=== PATIENT | female | born 1990 | race Caucasian/White ===

== ENCOUNTER → 2020-09-09 15:36 | Outpatient (BNVA) | payer OTHER, SELFPAY | PROVIDERS: PCP Internal Medicine; Referring Provider Internal Medicine; Visit Provider Physician Assistant ==

== ENCOUNTER 2020-09-15 10:27 | Outpatient (REF) | payer OTHER, SELFPAY ==
[2020-09-15 11:48] LABS: MANUAL DIFF FLAG NO
[2020-09-15 11:52] LABS: Basophils Percent Auto 0.5 % (0-2); Eosinophils Absolute Auto 0.1 X10*3/uL (0.0-0.4); Eosinophils Percent Auto 1.4 % (0-4); Hematocrit 44.4 % (37-47); Hemoglobin 14.9 g/dl (12.0-16.0); Imm Gran Abs Auto 0.01 X10*3/uL (0.00-0.03); Imm Gran Pct Auto 0.2 % (0.0-0.4); Lymphocytes Absolute Auto 1.9 X10*3/uL (1.2-4.9); Lymphocytes Percent Auto 28.2 % (20-40); Mean Corpuscular HGB Conc 33.6 g/dl (31.0-35.0); Mean Corpuscular Hemoglobin 29.9 pg (27.0-33.0); Monocytes Absolute Auto 0.4 X10*3/uL (0.1-1.2); Monocytes Percent Auto 6.2 % (2-11); Neutrophils Absolute Auto 4.2 X10*3/uL (2.0-8.3); Neutrophils Percent Auto 63.5 % (45-73); Platelet Count 196 X10*3/uL (160-400); Red Blood Count 4.99 X10*6/uL (4.20-5.50); Red Cell Distribution Width 11.9 % (11.0-16.0); White Blood Count 6.6 X10*3/uL (4.8-10.8)
[2020-09-15 12:07] LABS: Estimated Average Glucose 117 mg/dL; Hemoglobin A1c % 5.7 %
[2020-09-15 12:18] LABS: Alanine Aminotransferase 34 U/L (0-31); Albumin Level 4.1 g/dL (3.5-5.0); Alkaline Phosphatase 72 U/L (39-117); Anion Gap 13 (12-20); Aspartate Amino Transferase 24 U/L (5-31); Bilirubin Total 0.4 mg/dL (0.0-1.0); Blood Urea Nitrogen 11 mg/dL (9-16); C Reactive Protein 2.59 mg/dL (< or = 0.50); Calcium 8.9 mg/dL (8.4-10.2); Carbon Dioxide 25 mmol/L (22-29); Chloride 105 mmol/L (96-108); Cholesterol 151 mg/dL; Estimated Glomerular Filt Rate > 60; Glucose Random 101 mg/dL (60-115); HDL Cholesterol 30 mg/dL; Iron 89 mcg/dL (30-160); LDL Cholesterol Calculated 75 mg/dl; Percent Iron Saturation 29 % (15-50); Potassium 4.4 mmol/L (3.3-5.1); Sodium 139 mmol/L (135-145); Total Iron Binding Capacity 306 mcg/dL (228-428); Total Protein 6.8 g/dL (6.5-8.0); Triglycerides 230 mg/dL; Unsaturated Iron Binding 217 ug/dL
[2020-09-15 12:32] LABS: Ferritin 205 ng/mL (10-122); TSH reflex Free T4 1.33 uIU/mL (0.32-4.0); Vitamin D 25-OH Total 32.6 ng/mL (>30)
[2020-09-15 12:54] LABS: Folate 17.3 ng/mL (> or = 4.0); Vitamin B12 541 pg/mL (200-900)
[2020-09-16 21:27] LABS: Insulin Level Total 13.5 uIU/mL
[2020-09-18 12:01] LABS: Calcium (PTHI) 8.9 mg/dL (8.6-10.2); PTHI 66 pg/mL (14-64)
[2020-09-19 10:22] LABS: Vitamin B1 <6 nmol/L (8-30)
[2020-09-21 05:02] LABS: Vitamin A 35 mcg/dL (38-98)
[2020-09-21 15:36] LABS: Zinc 66 mcg/dL (60-130)
== END 2020-09-15 10:28 | disposition home or self-care (01) ==
LOC: HO.LAB 10:27
PROVIDERS: PCP Internal Medicine; Visit Provider Physician Assistant
DX: E66.01 Morbid (severe) obesity due to excess calories (principal)
CPT/HCPCS: 36415; 80053; 80061; 82306; 82607; 82728; 82746; 83036; 83525; 83540; 83970; 84425; 84443; 84590; 84630; 85025; 86140

== ENCOUNTER → 2020-10-07 08:24 | Outpatient (BNVA) | payer OTHER, SELFPAY | PROVIDERS: PCP Internal Medicine; Visit Provider Dietitian, Registered | DX: E66.01 Morbid (severe) obesity due to excess calories (principal); Z68.42 Body mass index [BMI] 45.0-49.9, adult | CPT/HCPCS: 97802 ==

== ENCOUNTER → 2020-10-13 14:28 | Outpatient (REF) | payer OTHER, SELFPAY ==
--- NOTE | 2020-10-13 15:01 | ECG_ITS ---
Test Reason : MORBID OBESITY Blood Pressure : / mmHG Vent. Rate : 084 BPM Atrial Rate : 084 BPM P-R Int : 138 ms QRS Dur : 086 ms QT Int : 374 ms P-R-T Axes : 040 008 022 degrees QTc Int : 441 ms Normal sinus rhythm Normal ECG No previous ECGs available Referred By: Regina Easton Electronically Signed By:MARY DEL REAL
[2020-10-15 14:01] LABS: H Pylori Breath Test NOT DETECTED (NOT DETECTED)
== END ==
LOC: HO.CARD 14:28
PROVIDERS: PCP Internal Medicine; Referring Provider Internal Medicine; Visit Provider Physician Assistant
DX: E66.01 Morbid (severe) obesity due to excess calories (principal); Z11.0 Encounter for screening for intestinal infectious diseases
CPT/HCPCS: 83013; 93005

== ENCOUNTER → 2020-10-21 08:10 | Outpatient (BNVA) | payer OTHER, SELFPAY | PROVIDERS: PCP Internal Medicine; Visit Provider Physician Assistant ==

== ENCOUNTER → 2020-11-09 08:00 | Outpatient (BNVA) | payer OTHER, SELFPAY | PROVIDERS: PCP Internal Medicine; Visit Provider Surgery ==

== ENCOUNTER 2020-11-10 09:32 | Outpatient (REF) | payer OTHER, SELFPAY ==
--- NOTE | ~2020-11-10 | FL_ITS ---
EXAMINATION: XR GI SERIES CLINICAL INFORMATION: Morbid/severe obesity due to excess calories. COMPARISON: None. TECHNIQUE: Routine upper GI air-contrast study was performed in upright and lying positions. FINDINGS: Following oral administration of thick barium and effervescent granules, there is normal propagation of bolus from the oral cavity through the pharynx and esophagus and into the stomach without any evidence of obstruction, narrowing or stricture. On placing patient supine and prone lying, the course, caliber and peristalsis of the stomach and the small bowel are normal. Mild gastroesophageal reflux seen without hiatal hernia. FLUOROSCOPY TIME: 1.8 minutes. DOSE AREA PRODUCT: 59.453 uGy-m2 (microgray-meter squared). FL/FL upper GI series IMPRESSION: Mild gastroesophageal reflux without hiatal hernia.
--- NOTE | ~2020-11-10 | XR_ITS ---
EXAMINATION: XR CHEST CLINICAL INFORMATION: Morbid/severe obesity due to excess calories. COMPARISON: None TECHNIQUE: 2 views of the chest were obtained. FINDINGS: No significant abnormality is noted involving the heart, lungs, mediastinum, bony thorax or soft tissues. XR/XR chest 2V IMPRESSION: Unremarkable chest examination.
== END 2020-11-10 09:33 | disposition home or self-care (01) ==
LOC: HO.XRAY 09:32
PROVIDERS: PCP Internal Medicine; Visit Provider Surgery
DX: Z01.818 Encounter for other preprocedural examination (principal); E66.01 Morbid (severe) obesity due to excess calories; K21.9 Gastro-esophageal reflux disease without esophagitis
CPT/HCPCS: 71046; 74240

== ENCOUNTER → 2020-12-01 09:13 | Outpatient (BNVA) | payer OTHER, SELFPAY | PROVIDERS: PCP Internal Medicine; Referring Provider Internal Medicine; Visit Provider Physician Assistant Surgical ==

== ENCOUNTER 2020-12-03 09:33 | Outpatient (REF) | payer OTHER, SELFPAY ==
--- NOTE | ~2020-12-03 | US_ITS ---
EXAMINATION: US COMPLETE ABDOMEN WITH LIVER ELASTOGRAPHY CLINICAL INFORMATION: Obesity COMPARISON: Previous CT of the abdomen and pelvis June 2016 TECHNIQUE: Real-time imaging of the abdominal viscera. Noninvasive ultrasound liver fibrosis assessment is performed using Jumana ElastPQ point quantification shear wave elastography (pSWE) with a C5-2 MHz transducer. Multiple elastography samples are obtained. FINDINGS: PANCREAS: Not well visualized due to bowel gas ABDOMINAL AORTA: Not well visualized due to bowel gas. INFERIOR VENA CAVA: Visualized portions are normal. LIVER: Liver echotexture is increased. The liver is normal in size and contour. No focal lesion or intrahepatic biliary duct dilatation. The right lobe measures 17 cm in length. The left lobe measures 12 cm in length. Portal flow is normal/hepatopedal Shear wave liver elastography median stiffness is 1.3 m/s (reference: normal median stiffness is 1.3 m/s or less). IQR/median stiffness to assess sampling precision is 0.05 (reference: good quality data set is IQR/median stiffness of 0.15 or less). GALLBLADDER: The gallbladder is not well visualized. There is a wall echo shadow complex seen suggestive of a contracted gallbladder and gallstones. This is similar to June 2016 CT scan. COMMON BILE DUCT: Not well seen. RIGHT KIDNEY: Normal. No hydronephrosis. No renal calculi or focal parenchymal lesions. The kidney measures 11.8 cm in maximum dimension. LEFT KIDNEY: There is a 3 x 6 mm stone in the upper pole.. No hydronephrosis. The kidney measures 11.7 cm in maximum dimension. SPLEEN: The spleen is slightly enlarged. The spleen measures 13.6 cm in maximum dimension. FREE FLUID: None. US/US abdomen comp w elastography IMPRESSION: 1. Impression: Slightly echogenic liver probably representing fatty infiltration. Slightly enlarged spleen. Pancreas, gallbladder and common bile duct not well visualized. Wall echo shadow complex suggestive of contracted gallbladder and gallstones. Left renal stone. 2. Liver elastography: Adequate liver sampling. Normal liver stiffness. REFERENCE: Society of Radiologists in Ultrasound Liver Stiffness Thresholds (2020): LIVER STIFFNESS THRESHOLDS: *Liver Stiffness equal or less than 1.3 m/s: High probability of being normal. *Liver Stiffness less than 1.7 m/s: In the absence of other known clinical signs, rules out compensated advanced chronic liver disease. *Liver Stiffness 1.7-2.1 m/s: Suggestive of compensated advanced chronic liver disease but need further test for confirmation. *Liver Stiffness over 2.1 m/s: Rules in compensated advanced chronic liver disease. *Liver Stiffness over 2.4 m/s: Suggestive of clinically significant portal hypertension. QUALITY OF DATA SET: *IQR/Median value equal or less than 0.15 implies a quality data set. *IQR/Median value over 0.15 implies a poor quality data set. SIGNIFICANT CHANGE FROM PRIOR EXAM: Significant change if liver stiffness measurement is 10% or greater from prior exam. OTHER CONSIDERATIONS: The stage of liver fibrosis may be overestimated in the setting of acute hepatitis, liver inflammation, elevated liver function tests, hepatic vascular congestion, obstructive cholestasis, non-fasting state, and infiltrative diseases such as amyloidosis and lymphoma. In some patients with NAFLD, the liver stiffness thresholds for compensated advanced chronic liver disease may be lower. In causes other than viral hepatitis and NAFLD, liver stiffness thresholds are not well established.
== END 2020-12-03 09:34 | disposition home or self-care (01) ==
LOC: HO.US 09:33
PROVIDERS: Absent Provider Surgery; PCP Internal Medicine; Visit Provider Physician Assistant
DX: E66.01 Morbid (severe) obesity due to excess calories (principal)
CPT/HCPCS: 76705; 76981

== ENCOUNTER → 2020-12-04 08:17 | Outpatient (BNVA) | payer OTHER, SELFPAY | PROVIDERS: PCP Internal Medicine; Visit Provider Surgery ==

== ENCOUNTER 2020-12-08 14:45 | Inpatient (IN) | payer MEDICAID, SELFPAY ==
[2020-12-03 10:59] LABS: MANUAL DIFF FLAG NO
[2020-12-03 11:25] LABS: Basophils Percent Auto 0.3 % (0-2); Eosinophils Absolute Auto 0.1 X10*3/uL (0.0-0.4); Eosinophils Percent Auto 1.1 % (0-4); Hematocrit 44.6 % (37-47); Imm Gran Abs Auto 0.01 X10*3/uL (0.00-0.03); Imm Gran Pct Auto 0.2 % (0.0-0.4); Lymphocytes Absolute Auto 1.8 X10*3/uL (1.2-4.9); Lymphocytes Percent Auto 27.4 % (20-40); Mean Corpuscular HGB Conc 33.6 g/dl (31.0-35.0); Mean Corpuscular Hemoglobin 30.3 pg (27.0-33.0); Mean Corpuscular Volume 90.1 fL (80-98); Mean Platelet Volume 12.7 fL (9.4-12.3); Monocytes Absolute Auto 0.3 X10*3/uL (0.1-1.2); Monocytes Percent Auto 5.1 % (2-11); Neutrophils Absolute Auto 4.3 X10*3/uL (2.0-8.3); Neutrophils Percent Auto 65.9 % (45-73); Platelet Count 195 X10*3/uL (160-400); Red Blood Count 4.95 X10*6/uL (4.20-5.50); White Blood Count 6.5 X10*3/uL (4.8-10.8)
[2020-12-03 11:29] LABS: INTERNATIONAL NORM RATIO 1.1 (0.9-1.1); Prothrombin Time 12.3 SEC (9.9-13.0)
[2020-12-03 11:36] LABS: Estimated Average Glucose 103 mg/dL; Hemoglobin A1c % 5.2 %
[2020-12-03 11:43] VITALS: BMI 42.8
[2020-12-03 12:07] LABS: Insulin 10 uU/mL (2-29); TSH reflex Free T4 1.18 uIU/mL (0.32-4.0)
[2020-12-03 12:12] LABS: Alanine Aminotransferase 20 U/L (0-31); Alkaline Phosphatase 78 U/L (39-117); Anion Gap 12 (12-20); Aspartate Amino Transferase 15 U/L (5-31); Bilirubin Total 0.4 mg/dL (0.0-1.0); Blood Urea Nitrogen 11 mg/dL (9-16); C Reactive Protein 2.73 mg/dL (< or = 0.50); Calcium 8.9 mg/dL (8.4-10.2); Carbon Dioxide 26 mmol/L (22-29); Chloride 106 mmol/L (96-108); Cholesterol 119 mg/dL; Creatinine Clr Calc Pharmacy 138.5; Estimated Glomerular Filt Rate > 60; Glucose Random 92 mg/dL (60-115); HDL Cholesterol 26 mg/dL; LDL Cholesterol Calculated 63 mg/dl; Potassium 4.6 mmol/L (3.3-5.1); Sodium 139 mmol/L (135-145); Total Protein 6.5 g/dL (6.5-8.0); Triglycerides 153 mg/dL
--- NOTE | 2020-12-07 09:27 | HO.ANESPROP2 ---
Documented by User: Susie Moreno NP 12/07/20 09:29 HPI - Anesthesia Eval Consult details Narrative: 30yo F for Gastrectomy Sleeve, EGD, Poss Diaphragmatic Hernia, Poss Ventral Hernia, Poss open PMFSH Active Problems Active Problems: All Active Problems (Updated 12/03/20 @ 11:43 by Suyapa Ambriz RN) Morbid obesity (Acute) Adjustment disorder, unspecified (Acute) Vitamin A deficiency (Acute) Vitamin B1 deficiency (Acute) Past Medical History Medical History (Updated 12/03/20 @ 11:43 by Suyapa Ambriz RN) Arthritis COVID-19 vaccine series completed Encounter for Essure implantation GERD (gastroesophageal reflux disease) History of hypertension Hx of hidradenitis suppurativa Renal calculi Family History Family History (Updated 09/09/20 @ 16:06 by Elba Ibarra) Mother Breast cancer Father Deaf Knee problem Sister No problems noted. Sister Allergies Brother Muscular dystrophies Brother No problems noted. Surgical History Surgical History (Updated 12/03/20 @ 11:43 by Suyapa Ambriz RN) History of ankle fusion History of repair of ACL Hx of cystoscopy Social History Social History (Updated 09/09/20 @ 16:06 by Elba Ibarra) Are you a primary pediatric care coordinator to a significant other at home: No Do you presently have visiting nurse or other home services: No Alcohol intake: current Alcohol intake frequency: does not drink Patient Tobacco Use Status: Current everyday Tobacco user Tobacco use type: Cigarette Cigarettes Per Day: 8 Smoked in Last 30 Days: Yes Patient Given Instructions on How to Stop Smoking: Yes (patient currently taking bupropion for smoking cessation) Date Education Initiated: 12/03/20 Use of substances other than those prescribed or required for medical reasons: Yes Substance Use Type Other:: advised to hold pre-op Substance Use Frequency: Occasionally Have you been hit, kicked, punched, or otherwise hurt by someone within the past year? If so, by whom?: No Are you DNR?: No Advance Directives: No Advance Directives Information Provided: Yes (informational brochure mailed) Advance Directives on File: No Recently lost weight without trying: No Eating poorly because of decreased appetite: No Nutrition Risks: No Nutritional Risk Patient : No FDLMP: 11/23/20 : No Poor oral hygiene: No Meds Allergies Allergy/AdvReac Type Severity Reaction Status Date / Time No Known Allergies Allergy Verified 12/04/20 09:01 [No Known Allergies*] Home Medications Medication Instructions Recorded Confirmed Last Taken Type cholecalciferol (vitamin D3) 25 25 mcg PO DAILY 09/09/20 12/03/20 Unknown History mcg (1,000 unit) capsule pguunapv-vve-itrg-FA-Ca carb-vit K 1 tab PO DAILY 09/09/20 12/03/20 Unknown History 18 mg iron-400 mcg-500 mg tablet (Women's Multivitamin) bupropion HCl 100 mg tablet 1 tab PO BID 12/03/20 12/03/20 Unknown History Exam Exam Date and Time: December 07, 2020 09 Height,Weight and Vital Signs: Height 5 ft 3 in Weight 109.769 kg Pertinent Lab Results Pertinent Lab Results: Laboratory Tests 12/03/20 12/03/20 12/03/20 10:50 10:55 10:55 WBC 6.5 RBC 4.95 Hgb 15.0 Hct 44.6 MCV 90.1 MCH 30.3 MCHC 33.6 RDW 12.0 Plt Count 195 MPV 12.7 H Immature Gran % (Auto) 0.2 Neut % (Auto) 65.9 Lymph % (Auto) 27.4 Taylor % (Auto) 5.1 Eos % (Auto) 1.1 Baso % (Auto) 0.3 Lymph # (Auto) 1.8 Taylor # (Auto) 0.3 Eos # (Auto) 0.1 Baso # (Auto) 0.0 Abs Immat Gran (auto) 0.01 Absolute Neuts (auto) 4.3 Absolute Nucleated RBC 0.000 Nucleated RBC % (auto) 0.0 PT 12.3 INR 1.1 APTT 42.0 H Sodium Potassium Chloride Carbon Dioxide Anion Gap BUN Creatinine Estim Creat Clear Calc Estimated GFR Random Glucose Estimat Average Glucose Hemoglobin A1c % Insulin Level Calcium Total Bilirubin AST ALT Alkaline Phosphatase C-Reactive Protein Total Protein Albumin Triglycerides Cholesterol LDL Cholesterol, Calc HDL Cholesterol TSH Blood Type O Positive Antibody Screen NEGATIVE 12/03/20 12/03/20 10:55 10:55 WBC RBC Hgb Hct MCV MCH MCHC RDW Plt Count MPV Immature Gran % (Auto) Neut % (Auto) Lymph % (Auto) Taylor % (Auto) Eos % (Auto) Baso % (Auto) Lymph # (Auto) Taylor # (Auto) Eos # (Auto) Baso # (Auto) Abs Immat Gran (auto) Absolute Neuts (auto) Absolute Nucleated RBC Nucleated RBC % (auto) PT INR APTT Sodium 139 Potassium 4.6 Chloride 106 Carbon Dioxide 26 Anion Gap 12 BUN 11 Creatinine 0.70 Estim Creat Clear Calc 138.5 Estimated GFR > 60 Random Glucose 92 Estimat Average Glucose 103 Hemoglobin A1c % 5.2 Insulin Level 10 Calcium 8.9 Total Bilirubin 0.4 AST 15 ALT 20 Alkaline Phosphatase 78 C-Reactive Protein 2.73 H Total Protein 6.5 Albumin 4.0 Triglycerides 153 Cholesterol 119 D LDL Cholesterol, Calc 63 HDL Cholesterol 26 TSH 1.18 Blood Type Antibody Screen Narrative Narrative: EKG 10/2020 Vent. Rate : 084 BPM ? ? Atrial Rate : 084 BPM ?? P-R Int : 138 ms? QRS Dur : 086 ms ? ? QT Int : 374 ms ? ? ? P-R-T Axes : 040 008 022 degrees ?? QTc Int : 441 ms ? Normal sinus rhythm Normal ECG No previous ECGs available Assessment and Plan Assessment Anesthesia Assessment: Chart Reviewed Documented by User: Phillip Ivey MD 12/08/20 11:11 [facility] Past Medical History Medical History (Updated 12/03/20 @ 11:43 by Suyapa mAbriz RN) Arthritis COVID-19 vaccine series completed Encounter for Essure implantation GERD (gastroesophageal reflux disease) History of hypertension Hx of hidradenitis suppurativa Renal calculi Family History Family History (Updated 09/09/20 @ 16:06 by Elba Ibarra) Mother Breast cancer Father Deaf Knee problem Sister No problems noted. Sister Allergies Brother Muscular dystrophies Brother No problems noted. Family history of problems with anesthesia: No Surgical History Surgical History (Updated 12/03/20 @ 11:43 by Suyapa Ambriz RN) History of ankle fusion History of repair of ACL Hx of cystoscopy History of Problems with Anesthesia: No Social History Social History (Updated 09/09/20 @ 16:06 by Elba Ibarra) Are you a primary pediatric care coordinator to a significant other at home: No Do you presently have visiting nurse or other home services: No Alcohol intake: current Alcohol intake frequency: does not drink Patient Tobacco Use Status: Current everyday Tobacco user Tobacco use type: Cigarette Cigarettes Per Day: 8 Smoked in Last 30 Days: Yes Patient Given Instructions on How to Stop Smoking: Yes (patient currently taking bupropion for smoking cessation) Date Education Initiated: 12/03/20 Use of substances other than those prescribed or required for medical reasons: Yes Substance Use Type Other:: advised to hold pre-op Substance Use Frequency: Occasionally Have you been hit, kicked, punched, or otherwise hurt by someone within the past year? If so, by whom?: No Are you DNR?: No Advance Directives: No Advance Directives Information Provided: Yes (informational brochure mailed) Advance Directives on File: No Recently lost weight without trying: No Eating poorly because of decreased appetite: No Nutrition Risks: No Nutritional Risk Patient : No FDLMP: 11/23/20 : No Poor oral hygiene: No Meds Allergies Allergy/AdvReac Type Severity Reaction Status Date / Time No Known Allergies Allergy Verified 12/04/20 09:01 [No Known Allergies*] Home Medications Medication Instructions Recorded Confirmed Last Taken Type cholecalciferol (vitamin D3) 25 25 mcg PO DAILY 09/09/20 12/03/20 Unknown History mcg (1,000 unit) capsule klncbidn-htj-sive-FA-Ca carb-vit K 1 tab PO DAILY 09/09/20 12/03/20 Unknown History 18 mg iron-400 mcg-500 mg tablet (Women's Multivitamin) bupropion HCl 100 mg tablet 1 tab PO BID 12/03/20 12/03/20 Unknown History Exam Airway Mallampati Class: I TM Dist: >3cm Neck ROM: Full Loose/Missing/Broken Teeth: No Assessment and Plan Assessment Anesthesia Assessment: Anesthesia Plan Discussed Final Anesthetic Review Family History of Problems with Anesthesia: No History of Problems with Anesthesia: No NPO: Yes ASA Class: III Final Preanesthetic Review: No Changes in Pt Med Stat, Meds/Allgs Chart Reviewed, Consent Obtained/Reviewed and Anes Risks/Benef Reviewed Patient Risk: Intermediate Procedure Risk: Intermediate Anesthetic Plan Anesthetic Plan: GA Disposition: Standard PACU
--- NOTE | 2020-12-07 13:08 | P.HPSUR_ITS ---
Pre-Procedural Eval Section A Date of Service: 12/07/20 The patient is an INPATIENT: Yes The History & Physical has been completed within 30 days and I have reviewed it.: Yes Section B Chief Complaint: Morbid Severe Obesity Relevant Family History (Specify if Yes): Yes Relevant Social History: None Present Medications: None Medical History: No relevant PMH History of Previous Operations: No relevant previous surgery Allergies: Allergies Allergy/AdvReac Type Severity Reaction Status Date / Time No Known Allergies Allergy Verified 12/04/20 09:01 [No Known Allergies*] Review of Systems Sugical H&P ROS: Negative: Constitution, Cardiovascular, Respiratory, Neurological, Psychiatric, Hem-Onc, Allergic/Immunologic, Gastrointestinal, Genitourinary, Musculoskeletal, Integumentary, Endocrine and Eyes/Ears /Nose/Throat Exam Surgical H&P Exam: Normal: HEENT, Normal: Heart, Normal: Lungs, Normal: Extremities, Normal: Abdomen, Normal: Skin and Normal: Neurological Plan Diagnosis/Plan: Unchanged I have reviewed the history and physical and performed a pertinent physical examination on my patient. No changes have occurred unless specified.
[2020-12-08] VITALS (11 sets, daily range): BP systolic 119–158; BP diastolic 71–103; PULSE 81–101; RESP 14–25; TEMP 36.2–36.4; O2SAT 91–97
[2020-12-08 09:17] LABS: UPreg QC Valid YES; Urine Pregnancy NEGATIVE (NEGATIVE)
[2020-12-08] MEDS: Lactated Ringers 1,000 ML 999 ML IV (09:18)
[2020-12-08] MEDS: Lactated Ringers 1,000 ML 100 ML IVCONT (09:18)
[2020-12-08 09:19] LABS: COVID-19 Test Negative (Negative); IDNOW Serial# 9DD0AD1C
--- NOTE | 2020-12-08 11:38 | P.BOP_ITS ---
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 The patient met the BMI-criteria for bariatric surgery based on the BMI on initial presentation. The patient should not be penalized for achieving such weight loss because ?it is not sustainable long-term without surgical intervention and it was achieved in preparation for bariatric surgery ?under my direction and based on my published research ([email or web address] and? [email or web address] [email or web address]/article/[email or web address])[email or web address]/pdf ) ?that a 10% preoperative weight loss improves long-term weight loss after surgery and reduces perioperative complications.? Insurance carriers such as [facility] have endorsed my recommendations ?and have included in their policies criteria to include a 10% preoperative weight loss requirement. PROCEDURE: Esophago-gastroscopy, laparoscopic repair of incarcerated diaphragmatic hernia, laparoscopic lysis of adhesions, laparoscopic sleeve gastrectomy and laparoscopic gastropexy INDICATIONS: This is a 30 year-old female who was electively scheduled for laparoscopic, possibly open sleeve gastrectomy. The risks and complications of the procedure were discussed with the patient in advance, particularly the possibility of ; pulmonary embolism; staple line leak; bleeding; GERD; cardiac, pulmonary, or renal complications; as well as long-term problems such as insufficient weight loss, vitamin deficiency, strictures, or ulcers. The patient understood all the risks, and was in agreement to proceed with surgery. DESCRIPTION OF PROCEDURE: After informed consent was obtained from the patient, the patient was given preoperative antibiotics, and was transferred to the operating room. After successful induction of general anesthesia, pneumatic compressive devices were placed on both lower extremities. An upper endoscopy was performed next. The oropharynx and esophagus appeared to be within normal limits. There was no diaphragmatic hernia present, consistent with the findings of the preoperative upper GI. The stomach was entered. Then after all fluid and air were suctioned and the stomach was fully decompressed, the scope was withdrawn and secured in the mid esophagus. The patient was then prepped and draped in the usual sterile manner, and abdominal access was established at the right upper quadrant with the Mary technique. A 12 mm blunt port was inserted, and the abdomen was insufflated with CO2 to a pressure of 15 mmHg. Under direct visualization, additional ports were placed, specifically two 5 mm Versi-step ports to the left upper quadrant, and a 5 mm Versi-Step port to the right upper quadrant. 1% lidocaine plain was used to infiltrate all port sites as well as all fascia defects. Using the EndoClose suture passer device, I placed a #1 Polysorb tie across the falciform ligament in order to retract it up against the abdominal wall and prevent injury of the ligament with our instruments during the procedure. Following that, the patient was placed in a steep reverse Trendelenburg position. An additional 5 mm port was placed to the right flank for the Mediflex retractor that was used to retract the left lobe of the liver. The gastro-esophageal fat pad was opened with the ultrasonic device (Thunderbeat , Olympus) and the anterior esophagus and hiatus were exposed. The angle of His was opened with the ultrasonic device the fundus of the stomach from any diaphragmatic and splenic attachments. I then opened the gastrocolic ligament between the transverse colon and the greater curvature of the stomach with the ultrasonic device to enter the lesser sac and facilitate the ligation of the short gastric vessels. I started at a mid-point along the greater curvature and using the Thunderbeat, all short gastric vessels were divided all the way to the angle of His until the left jonathan was completely dissected at its entirety. I then divided the gastro-colic ligament distally to a distance of about 3-4 cm proximal to the esophagus. There were extensive congenital adhesions between the pancreas and posterior gastric wall. Those were lysed completely with the ultrasonic device. Adhesiolysis took approximately 45 min to complete. Total operative time was 2 hours and 10 minutes. The stomach was then divided transversely with one Endo TOMAS-45 purple, two TOMAS- 45 orange and four TOMAS-60 articulating orange loads using the AEON stapler and loads. Every effort was made that the gastric sleeve had a tubular shape and an even caliber throughout. Once the sleeve resection was completed, the staple line of the gastric sleeve was reinforced with Hemoclips. The resected stomach was retrieved without difficulty from the Mary port. A gastropexy was then performed in order to prevent postoperative GERD and partial gastric volvulus. Several interrupted 2.0 Surgidac sutures were placed between the sleeve's staple line and the previously divided greater omentum and gastro-colic ligament using the Endo-Stitch device. ?An upper endoscopy was performed. There was no narrowing at the GE junction. The scope was easily advanced all the way to the pylorus which was clearly visualized. There was no narrowing anywhere and the sleeve's caliber was even throughout. The sleeve's staple line was inspected and there was no evidence of ischemia, bleeding or dehiscence. At that point the gastroscope was withdrawn from the patient?s mouth while we were decompressing the bowel and the stomach f rom any remaining air. I looked into the lesser sac to see how the sleeve was situating and it was situating well. There was no bleeding from the staple line, spleen, or short gastric vessels. The Mediflex retractor was removed, and the undersurface of the liver was inspected and there was no bleeding. The patient was placed in supine position. I closed the fascial defect of the 12 mm port site with a figure of eight #1 Polysorb suture. Then 100 cc 0.25 % Marcaine plain with 10 mg of Dexamethasone were used to infiltrate the fascial closure as well as all skin incisions. At this point, the abdomen was deflated, all ports were removed under direct vision, and no bleeding was noted from any of the port sites. The skin incisions were irrigated with saline and were closed with 4-0 absorbable monofilament sutures. Steri-Strips and OpSites were used to cover all incisions. The patient was extubated and was transferred in stable condition to the recovery room for further care. I was present and performed all ho parts of the procedure. Mr. Davis was the general office assistant and Cordelia Rustam was the second minister assistant. There were no residents to assist with this case. Micheal Lama MD, PhD, FACS Surgeon: Jarocho Lama MD Anesthesia: GETA, local and other (TAP block) Was an Sand Plant Attendant used for this Procedure?: No Sand Plant Attendant: Partha Davis Estimated blood loss (mL): 10 IV fluids (mL): 3,000 Urine output (mL): 0 (No Harden to record) Pathology: other (Stomach) Condition: stable Disposition: PACU
--- NOTE | 2020-12-08 11:43 | PM.PNGS ---
Subjective Subjective Date of Service: 12/09/20 Interval history: Patient has mild incisional pain, but was able to ambulate and use the incentive spirometer. She is tolerating phase 1 bariatric diet Physical Exam Vital Signs: Vital Signs: Last Vital Signs Temp 97.1 F 12/08/20 09:08 Pulse 83 12/08/20 09:08 Resp 16 12/08/20 09:08 BP 119/71 12/08/20 09:08 Pulse Ox 97 12/08/20 09:08 Body Mass Index 42.8 GI: Inspection: Yes normal to inspection and Yes incision (clean, dry and intact) Extrem: Right lower extremity: normal to inspection (no calf tenderness) Left lower extremity: normal to inspection (no calf tenderness) Procedures Date of Service Date of Service: 12/09/20 Progress Note: A&P Assessment and plan (1) Morbid obesity: Status: Acute Assessment and Plan: s/p laparoscopic sleeve gastrectomy, lysis of adhesions repair of diaphragmatic hernia, and gastropexy Doing well Check am labs. If OK, will discharge home? (2) Hypertension: Status: Acute (3) GERD (gastroesophageal reflux disease): Status: Acute (4) Arthritis: Status: Acute (5) Renal calculi: Status: Acute (6) Cholelithiasis: Status: Acute (7) S/P laparoscopic sleeve gastrectomy: Status: Acute Fall Risk Details Current Medications: Current Medications Albuterol Sulfate (Albuterol Sulfate (0.083%) 2.5 Mg/3 Ml Vial.Neb) 2.5 mg INHALE ONCE PRN PRN Reason: Shortness of Breath/Wheezing Hydromorphone HCl (Hydromorphone Hcl 0.5 Mg/0.5 Ml Syringe) 0.5 mg IVPUSH Q5M PRN; Protocol PRN Reason: Pain, Severe (Pain Scale 7-10) Lactated Ringer's (Lr) 1,000 mls @ 100 mls/hr IVCONT .Q10H VINOD Last Admin: 12/08/20 09:18 Dose: 100 mls/hr Documented by: Promethazine HCl 12.5 mg/ (Sodium Chloride) 50.5 mls @ 202 mls/hr IV ONCE PRN PRN Reason: Nausea and Vomiting Ondansetron HCl (Ondansetron Hcl 4 Mg/2 Ml Vial) 4 mg IVPUSH ONCE PRN PRN Reason: Nausea and Vomiting Time Spent With Patient Time: Total time spent is greater than 50% in coordination of care (as documented) at patient's floor/unit and/or counseling patient: Time with patient: less than 15 minutes Quality Stroke Does the patient have a stroke diagnosis?: No VTE Prior VTE?: No VTE Risk Level:: Surgical - moderate VTE Device Contraindication: N/A - Device Ordered VTE Drug Contraindication: Treatment Not Indicated
--- NOTE | 2020-12-08 14:54 | P.DS_ITS ---
DS: Providers Provider Date of Service: 12/09/20 Primary care physician: Jenny Lopez MD DS: Diagnosis Discharge Diagnosis (1) Morbid obesity: Status: Acute (2) Hypertension: Status: Acute (3) GERD (gastroesophageal reflux disease): Status: Acute (4) Arthritis: Status: Acute (5) Renal calculi: Status: Acute (6) Cholelithiasis: Status: Acute DS: Summary Hospital Course Hospital Course: ADMITTING DIAGNOSIS: morbid obesity, GERD, HTN, Hidradenitis, asthma ? DISCHARGE DIAGNOSIS: same, s/p laparoscopic sleeve gastrectomy ? PAST SURGICAL HISTORY: R ankle fusion, L ACL repair ? PROCEDURE: upper endoscopy, laparoscopic sleeve gastrectomy ? DISCHARGE SUMMARY: ? History of Present Illness: ? The patient is a?30 year-old woman with a BMI of?51.2 kg/m2 and associated co- morbidities as described above. The patient had extensive work-up,lost?46.6 lbs preoperatively and was electively scheduled for laparoscopic, possible open sleeve gastrectomy and gastropexy. Risks and complications of the surgery were discussed with the patient in advance, particularly the possibility of , pulmonary embolism, anastomotic leak, bleeding, bowel injury, GERD, cardiac, renal or pulmonary complications. The patient understood all the risks and was in agreement with the surgical plan. ? Hospital Course: ? The patient underwent an uneventful laparoscopic sleeve gastrectomy with gastropexy on the day of admission. Postoperatively, the patient was transferred to the surgical floor. The patient received IV Acetaminophen and IV dilaudid for pain control. Patient was started on bariatric phase 1 diet POD #0. On postoperative day one, the patient was feeling well without nausea, vomiting, f fredy, or tachycardia. The patient had some mild incisional pain and the abdomen was soft. ? On the morning of postoperative day one, the patient was continued on 1 ounce of water or ice every half hour. During the day, the patient did fairly well, having some incisional pain, but able to ambulate adequately and to tolerate liquids well. ? Since the patient is doing well, we decided that the patient was ready to be discharged. The patient was given instructions to follow-up with me next week and to call my office for any fever over 101, persistent abdominal pain, nausea, vomiting, GERD, symptoms of DVT such as calf tenderness, or leg swelling, or pulmonary embolism such as chest pain or shortness of breath. The patient was also instructed to drink 40-60 ounces of liquids per day using the 1-ounce cups. The patient had been given prescriptions for Tylenol for pain, Zofran prn for nausea, and pantoprazole and carafate previously. The patient was encouraged to ambulate and use the incentive spirometer. The patient was allowed to shower, but no baths, and encouraged to stay active at home. All of these instructions were given to the patient personally. All questions were answered and the patient understood all instructions, the instructions were also given to the patient in print. Time spent discussing smoking cessation with patient: 3 to 10 minutes Time Spent with Patient Time attestation: Total time spent providing and/or coordinating discharge services: Discharge coordination time: Less than 30 minutes Quality: Stroke Does the patient have a stroke diagnosis?: No Physical Exam Vital Signs: Vital Signs: Last Vital Signs Temp 97.1 F 12/08/20 09:08 Pulse 83 12/08/20 09:08 Resp 16 12/08/20 09:08 BP 119/71 12/08/20 09:08 Pulse Ox 97 12/08/20 09:08 Body Mass Index 42.8 DS: Data Data Completed and Pending Pending studies at discharge: Pending at discharge 12/08/20 13:52 Surgical [PTH] Routine Labs on day of discharge: Laboratory Results - last 24 hr 12/08/20 12/08/20 08:44 08:44 Urine Test NEGATIVE COVID-19 ([facility]) Negative COVID-19 Clin Com See Note Discharge Plan Discharge Patient Disposition: Home, Self-Care Discharge Diagnosis: Morbid obesity Referrals: Jenny Lopez MD [Primary Care Provider] - 1 Week Discharge Medications: Continued pantoprazole 40 mg tablet,delayed release (DR/EC) 40 mg PO DAILY Qty: 30 RF: 2 sucralfate 100 mg/mL suspension 10 ml PO BID Qty: 400 RF: 2 ondansetron HCl [Zofran] 4 mg tablet 4 mg PO Q12H Qty: 20 RF: 0 Changed bupropion HCl 100 mg tablet 1 tab PO DAILY Qty: 0 RF: 0 Discontinued polyethylene glycol 3350 [Miralax] 17 gram powder in packet 17 g PO DAILY Qty: 14 RF: 0 cholecalciferol (vitamin D3) 25 mcg (1,000 unit) capsule 25 mcg PO DAILY RF: 0 Women's Multivitamin 18 mg iron-400 mcg-500 mg tablet 1 tab PO DAILY RF: 0 vitamin A palmitate 10,000 unit capsule 10,000 unit PO .COMPLEX Qty: 30 RF: 2 thiamine HCl (vitamin B1) 100 mg tablet 100 mg PO DAILY Qty: 30 RF: 2 Discharge Orders: Discharge Order (Routine); Ordered 12/09/20 Ordered By: Jarocho Lama Diet: other Activity on Discharge: As tolerated Activity Restrictions/Additional Instructions: No tub baths, sex or returning to work until discussed at first post op appointment. No exercise, alcohol, tobacco or illegal drug use. Continue to use incentive spirometer hourly while awake. Walk in home for 5- 10 minutes every 2 hours during the first week. Follow all instructions in the bariatric handbook and call with any questions.Discharge Instructions 1. Please call your doctor or come back to the emergency room should any new symptoms arise. 2. You will receive a courtesy call from [facility] 24-48 hours after discharge. 3. Activity: abstain from alcohol, practice limited stair climbing, no bending, no driving, no exercise, no illicit substances, no lifting, no sex, no tub bath, no work. 4. Diet: continue as discussed with Dr. Lama. 5. Dressing Change/Wound Care: Your incision is covered by clear bandages and guaze underneath. If the area is tender, you may apply an ice pack for short intervals (no more than 20 minutes on, followed by at least 20 minutes off). Do not apply heat. Do not use creams, lotions, or topical antibiotics unless instructed to do so by your surgeon. These can cause infection or allergic reaction. 6. Call your doctor if: - Your temperature exceeds 101.5 F - You experience excessive pain or swelling - You have an unexpected reaction to medication - You have excessive bleeding - You experience continued vomiting/nausea - Your incision begins to separate - Your incision shows signs of infection such as increased redness, swelling, excessive pain, heat, or drainage (light blood or clear fluid is normal) 7. General instructions: No lifting greater than 5 lbs for the next 4 weeks. [address] driving within 24 hours of taking narcotic pain medications. If you do not move your bowels in the next 2 days, please take milk of magnesia over the counter. Please follow the post op diet and do not advance your diet until you are seen in the office in about 2 weeks. Please walk around your home every hour or two to prevent blood clots from forming in your legs. You do not need to wake from sleeping to walk. Please sleep in a bed or couch to prevent kinking at the hips and knees. Please take your incentive spirometer (your lung director distribution) home with you and use it for the next few days to prevent pneumonias. You may shower, no hot tubs, baths or swimming pools. Please call the office with any questions or concerns such as increasing abdominal pain, fever, chills, shortness of breath, chest pain, leg pain or swelling, or redness or drainage from your incisions. Please stay on stage 3 diet which includes sugar free clear liquids such as propel water and crystal light. Avoid all carbonation. Please drink 3 protein shakes with at least 25-30 grams of protein daily or 3 of the Celebrate 4:1 shakes which can be purchased in our office. The Celebrate shakes have all of the bariatric vitamins you need if you consume these shakes. If you are drinking other protein shakes, you will need to purchase the Celebrate multivitamins and calcium that we provide in the office (they will provide all the vitamins you need). Please make sure you are consuming at least 40-60 ounces of water in addition to your 3 protein shakes daily. Do not hesitate to contact the office with any questions at . The patient's medical history has been reviewed and they are considered low risk for post op DVT and therefore DVT prophylaxis is not considered necessary. Travel after surgery was reviewed. The patient has not disclosed any travel plans during the first 30 days after surgery and they have been advised that wit hin the first 30 days after surgery any bus, plane, train or car travel over 2 hours in duration is contraindicated due to the possibility of developing blood clots from immobility. Any travel, needs to include periods of ambulation of 10 minutes in duration every 2 hours.? The patient was instructed to discuss any plans for travel during this period with their bariatric surgeon. Care Plan Goals: weight loss Health Concerns: obesity Plan of Treatment: No tub baths, sex or returning to work until discussed at first post op appointment. No exercise, alcohol, tobacco or illegal drug use. Continue to use incentive spirometer hourly while awake. Walk in home for 5- 10 minutes every 2 hours during the first week. Follow all instructions in the bariatric handbook and call with any questions.Discharge Instructions 1. Please call your doctor or come back to the emergency room should any new symptoms arise. 2. You will receive a courtesy call from [facility] 24-48 hours after discharge. 3. Activity: abstain from alcohol, practice limited stair climbing, no bending, no driving, no exercise, no illicit substances, no lifting, no sex, no tub bath, no work. 4. Diet: continue as discussed with Dr. Lama. 5. Dressing Change/Wound Care: Your incision is covered by clear bandages and guaze underneath. If the area is tender, you may apply an ice pack for short intervals (no more than 20 minutes on, followed by at least 20 minutes off). Do not apply heat. Do not use creams, lotions, or topical antibiotics unless instructed to do so by your surgeon. These can cause infection or allergic reaction. 6. Call your doctor if: - Your temperature exceeds 101.5 F - You experience excessive pain or swelling - You have an unexpected reaction to medication - You have excessive bleeding - You experience continued vomiting/nausea - Your incision begins to separate - Your incision shows signs of infection such as increased redness, swelling, excessive pain, heat, or drainage (light blood or clear fluid is normal) 7. General instructions: No lifting greater than 5 lbs for the next 4 weeks. No driving within 24 hours of taking narcotic pain medications. If you do not move your bowels in the next 2 days, please take milk of magnesia over the counter. Please follow the post op diet and do not advance your diet until you are seen in the office in about 2 weeks. Please walk around your home every hour or two to prevent blood clots from forming in your legs. You do not need to wake from sleeping to walk. Please sleep in a bed or couch to prevent kinking at the hips and knees. Please take your incentive spirometer (your lung director distribution) home with you and use it for the next few days to prevent pneumonias. You may shower, no hot tubs, baths or swimming pools. Please call the office with any questions or concerns such as increasing abdominal pain, fever, chills, shortness of breath, chest pain, leg pain or swelling, or redness or drainage from your incisions. Please stay on stage 3 diet which includes sugar free clear liquids such as ice pops and jello and broth and crystal light. Avoid all carbonation. Please drink 3 protein shakes with at least 25-30 grams of protein daily or 3 of the Celebrate 4:1 shakes which can be purchased in our office. The Celebrate shakes have all of the bariatric vitamins you need if you consume these shakes. If you are drinking other protein shakes, you will need to purchase the Celebrate multivitamins and calcium that we provide in the office (they will provide all the vitamins you need). Please make sure you are consuming at least 40-60 ounces of water in addition to your 3 protein shakes daily. Do not hesitate to contact the office with any questions at . The patient's medical history has been reviewed and they are considered low risk for post op DVT and therefore DVT prophylaxis is not considered necessary. Travel after surgery was reviewed. The patient has not disclosed any travel plans during the first 30 days after surgery and they have been advised that within the first 30 days after surgery any bus, plane, train or car travel over 2 hours in duration is contraindicated due to the possibility of developing blood clots from immobility. Any travel, needs to include periods of ambulation of 10 minutes in duration every 2 hours.? The patient was instructed to discuss any plans for travel during this period with their bariatric surgeon. Assessment: stable s/p laparoscopic sleeve gastrectomy
[2020-12-08 15:58] LABS: Hematocrit 43.2 % (37.0-47.0); Hemoglobin 14.5 g/dl (12.0-16.0)
[2020-12-08 16:21] LABS: Anion Gap 11 (12-20); Blood Urea Nitrogen 6 mg/dL (9-16); Calcium 8.2 mg/dL (8.4-10.2); Carbon Dioxide 24 mmol/L (22-29); Chloride 107 mmol/L (96-108); Creatinine Clr Calc Pharmacy 136.5; Estimated Glomerular Filt Rate > 60; Glucose Random 139 mg/dL (60-115); Potassium 4.2 mmol/L (3.3-5.1); Sodium 138 mmol/L (135-145)
[2020-12-08] MEDS: Lactated Ringers 1,000 ML 125 ML IVCONT ×2 (16:32→22:57)
[2020-12-08] MEDS: ondansetron HCL 4 MG/2 ML VIAL IVPUSH (17:17)
[2020-12-08] MEDS: ceFAZolin Sodium/Dextrose,Iso 2 GM/50 ML PIGGYBACK IV (17:17)
[2020-12-08] MEDS: 0.9 % Sodium Chloride Flush 3 ML SYRINGE IVFLUSH (19:13)
[2020-12-08] MEDS: Metoclopramide HCl 10 MG/2 ML VIAL IVPUSH (19:13)
[2020-12-08] MEDS: Famotidine/PF 20 MG/2 ML VIAL IVPUSH (20:58)
[2020-12-09] VITALS: BP 132/81; PULSE 70; RESP 18; TEMP 36.8; O2SAT 96
[2020-12-09] MEDS: ondansetron HCL 4 MG/2 ML VIAL IVPUSH ×2 (00:41→07:06)
[2020-12-09 03:19] VITALS: BP 140/79; PULSE 73; RESP 18; TEMP 36.3; O2SAT 92
[2020-12-09] MEDS: Lactated Ringers 1,000 ML 125 ML IVCONT (05:55)
[2020-12-09 06:19] LABS: MANUAL DIFF FLAG NO
[2020-12-09 06:27] LABS: Basophils Percent Auto 0.1 % (0-2); Hematocrit 40.5 % (37.0-47.0); Hemoglobin 13.3 g/dl (12.0-16.0); Imm Gran Abs Auto 0.05 X10*3/uL (0.00-0.03); Imm Gran Pct Auto 0.5 % (0.0-0.4); Lymphocytes Absolute Auto 1.1 X10*3/uL (1.2-4.9); Lymphocytes Percent Auto 9.7 % (20-40); Mean Corpuscular HGB Conc 32.8 g/dl (31.0-35.0); Mean Corpuscular Hemoglobin 29.8 pg (27.0-33.0); Mean Corpuscular Volume 90.6 fL (80.0-98.0); Mean Platelet Volume 12.8 fL (9.4-12.3); Monocytes Absolute Auto 0.5 X10*3/uL (0.1-1.2); Monocytes Percent Auto 4.1 % (2-11); Neutrophils Absolute Auto 9.45 x10*3/uL (2.0-8.3); Neutrophils Percent Auto 85.6 % (45-73); Platelet Count 187 X10*3/uL (160-400); Red Blood Count 4.47 X10*6/uL (4.20-5.50); Red Cell Distribution Width 11.9 % (11.0-16.0)
[2020-12-09 06:43] LABS: Anion Gap 11 (12-20); Blood Urea Nitrogen 5 mg/dL (9-16); Calcium 8.1 mg/dL (8.4-10.2); Carbon Dioxide 23 mmol/L (22-29); Chloride 108 mmol/L (96-108); Creatinine Clr Calc Pharmacy 167.1; Estimated Glomerular Filt Rate > 60; Glucose Random 101 mg/dL (60-115); Potassium 3.9 mmol/L (3.3-5.1); Sodium 138 mmol/L (135-145)
[2020-12-09] MEDS: Famotidine/PF 20 MG/2 ML VIAL IVPUSH (07:07)
[2020-12-09 08:00] VITALS: BP 133/70; PULSE 70; RESP 17; TEMP 36.3; O2SAT 93
--- NOTE | 2020-12-09 09:04 | MHC.CM.PN ---
[id number] s/p gastric sleeve she lives w family. She is independent with all functional activity. DP home with family assistance and transportation.
--- NOTE | 2020-12-09 12:58 | HO.POSTANES ---
Post Anesthesia Evaluation Post Anesthesia Evaluation Vital Signs: Vital Signs Temp Pulse Resp BP Pulse Ox 12/09/20 08:00 97.3 F 70 17 133/70 93 12/09/20 03:19 97.3 F 73 18 140/79 H 92 Anesthesia: General Endotracheal-GETA Mental Status: Awake Nausea/Vomiting: None Hydration: Adequate Anesthesia-Related Issues: No Anes. Related Issues
== END 2020-12-09 09:58 | disposition home or self-care (01) | DRG 403 ==
LOC: HO.SSS 14:54 → HO.S3 15:58
PROVIDERS: Nurse Practitioner; Surgery; Admitting Provider Physician Assistant Surgical; PCP Internal Medicine; Visit Provider Physician Assistant Surgical
PROC: 0DB64Z3 Excision of Stomach, Percutaneous Endoscopic Approach, Vertical (ICD-10-PCS; CPT 43845; principal; 2020-12-08 10:10)
DX: E66.01 Morbid (severe) obesity due to excess calories (principal); K76.0 Fatty (change of) liver, not elsewhere classified; F17.210 Nicotine dependence, cigarettes, uncomplicated; K80.20 Calculus of gallbladder without cholecystitis without obstruction; K21.9 Gastro-esophageal reflux disease without esophagitis; Z71.6 Tobacco abuse counseling; J45.909 Unspecified asthma, uncomplicated; Z68.41 Body mass index [BMI] 40.0-44.9, adult; I10 Essential (primary) hypertension; M19.90 Unspecified osteoarthritis, unspecified site; K66.0 Peritoneal adhesions (postprocedural) (postinfection); Z20.822 Contact with and (suspected) exposure to COVID-19; Z79.899 Other long term (current) drug therapy
CPT/HCPCS: 36415; 80048; 80053; 80061; 81025; 83036; 83525; 84443; 85014; 85018; 85025; 85610; 85730; 86140; 86850; 86900; 86901; 87635; 88307; 88342; 99024; A4649; J0131; J0171; J0690; J1100; J1170; J2250; J2405; J2550; J2765; J3010

== ENCOUNTER → 2020-12-16 09:39 | Outpatient (BNVA) | payer MEDICAID, SELFPAY | PROVIDERS: PCP Internal Medicine; Referring Provider Internal Medicine; Visit Provider Surgery | DX: E66.01 Morbid (severe) obesity due to excess calories (principal); Z68.41 Body mass index [BMI] 40.0-44.9, adult | CPT/HCPCS: 99212 ==

== ENCOUNTER → 2021-01-13 08:01 | Outpatient (BNVA) | payer MEDICAID, SELFPAY | PROVIDERS: PCP Internal Medicine; Visit Provider Physician Assistant Surgical | DX: E66.9 Obesity, unspecified (principal); Z68.38 Body mass index [BMI] 38.0-38.9, adult | CPT/HCPCS: 99212 ==

== ENCOUNTER → 2021-02-17 08:11 | Outpatient (BNVA) | payer MEDICAID, SELFPAY | PROVIDERS: PCP Internal Medicine; Visit Provider Physician Assistant Surgical | DX: E66.9 Obesity, unspecified (principal); Z68.33 Body mass index [BMI] 33.0-33.9, adult; K21.9 Gastro-esophageal reflux disease without esophagitis; Z98.84 Bariatric surgery status | CPT/HCPCS: 99212 ==

== ENCOUNTER → 2021-03-24 10:30 | Outpatient (BNVA) | payer MEDICAID, SELFPAY | PROVIDERS: PCP Internal Medicine; Referring Provider Internal Medicine; Visit Provider Physician Assistant Surgical | DX: E66.9 Obesity, unspecified (principal); L98.7 Excessive and redundant skin and subcutaneous tissue; Z68.31 Body mass index [BMI] 31.0-31.9, adult | CPT/HCPCS: 99212 ==

== ENCOUNTER 2021-04-08 09:17 | Emergency (ER) | payer MEDICAID, SELFPAY ==
[2021-04-08 09:26] VITALS: BP 134/89; PULSE 85; RESP 18; TEMP 36.9; O2SAT 100; BMI 31.1
--- NOTE | 2021-04-08 09:34 | ED_ITS ---
HPI - Skin/Abscess/Foreign Bdy General Chief complaint: Skin/Abscess/Foreign Body Stated complaint: nasal infection abscess Time Seen by Provider: 04/08/21 09:33 Source: patient Mode of arrival: ambulatory Limitations: no limitations History of Present Illness MD complaint: abscess/boil and lesion Onset (ago): day(s) (few) Location: face (R nares) Severity: mild Quality: aching Pain Consistency: constant Relieving factors: other (did take 3 doses of leftover amoxicillin) Exacerbating factors: palpation Context: other (infected nose ring which she removed) Associated symptoms: denies other symptoms Treatments prior to arrival: antibiotic Related Data Previous Rx's Medication Instructions Recorded pantoprazole 40 mg tablet,delayed 40 mg PO DAILY #30 tab 12/02/20 release sucralfate 100 mg/mL oral 10 ml PO BID #400 ml 02/17/21 suspension clotrimazole 1 % topical cream 1 appl TOPICAL BID PRN #45 g 03/24/21 (Antifungal (clotrimazole)) amoxicillin 875 mg-potassium 1 tab PO BID #14 tab 04/08/21 clavulanate 125 mg tablet Allergies Allergy/AdvReac Type Severity Reaction Status Date / Time No Known Allergies Allergy Verified 04/08/21 09:26 [No Known Allergies*] Review of Systems Review of Systems: Constitutional : No Fever, No Chills ENT/Mouth : No sore throat, No Rhinorrhea Eyes: No Eye Pain, No Swelling, No Redness Cardiovascular : No Chest Pain, No SOB Respiratory : No Cough, No Sputum Gastrointestinal : No Nausea, No Vomiting, No Diarrhea, No abdominal Pain Genitourinary : No Dysuria, No Hematuria Musculoskeletal : No joint pain, No Myalgias, No Joint Swelling Skin : pos Skin Lesions, no skin rash Neuro : No Weakness, No Numbness, No Headache Psych : No Anxiety, No Depression PMFSH Past Medical History Attestation statement: The following information was validated with the patient. Medical History Arthritis COVID-19 vaccine series completed Encounter for Essure implantation GERD (gastroesophageal reflux disease) History of hypertension Hx of hidradenitis suppurativa Hypertension Renal calculi Surgical History History of ankle fusion History of repair of ACL History of sleeve gastrectomy Hx of cystoscopy Hx of wisdom tooth extraction Family History Family History Mother Breast cancer Father Deaf Knee problem Sister No problems noted. Sister Allergies Brother Muscular dystrophies Brother No problems noted. Social History Social History Are you a primary customer care specialist to a significant other at home: No Do you presently have visiting nurse or other home services: No Alcohol intake: current Alcohol intake frequency: does not drink Patient Tobacco Use Status: Current everyday Tobacco user Tobacco use type: Cigarette Cigarettes Per Day: 8 Use of substances other than those prescribed or required for medical reasons: No Advance Directives: No Advance Directives Information Provided: No service: No Physical Exam Vital Signs: Vital Signs: Last Vital Signs Temp 98.4 F 04/08/21 09:26 Pulse 85 04/08/21 09:26 Resp 18 04/08/21 09:26 BP 134/89 04/08/21 09:26 Pulse Ox 100 04/08/21 09:26 BMI result Body Mass Index 31.1 Appearance: Alert. Oriented X3. No acute distress. Eyes: Pupils equal, round and reactive to light. ENT: Pharynx normal. R nare 1.5cm abscess seen externally normal nares and sinus normal no facial swelling Neck: Normal inspection. Neck supple. CVS: Pulses normal. Respiratory: No respiratory distress. Abdomen: Soft and non-tender. Skin: Skin warm and dry. Normal skin color. Extremities: No lower extremity edema. Neuro: Oriented X 3. No motor deficit. No sensory deficit. MDM - Skin/Abscess/Foreign Bdy MDM Narrative Medical decision making narrative: 30 yo female not toxic R nare internal abscess from nose ring no signs of external facial cellulitis or deeper space infection, no systemic infections - will start on augmentin and I/D area Procedures Abscess I/D Site: face (R nares) Side (if applicable): right Local Anesthetic: lidocaine 1% Amount of anesthesia used (mL): 1 Technique: needle aspiration Amount of fluid expressed (mL): 2 Sent for culture/gram staining?: No Irrigation: No Packing used?: none Discharge Plan Discharge Clinical Impression: Nasal abscess Patient Disposition: Home, Self-Care Instructions: Abscess (ED), Incision and Drainage (ED) Additional Instructions: return to ED for any worsening symptoms or concerns monitor for increased redness, fevers, swelling Prescriptions: New amoxicillin-pot clavulanate 875-125 mg tablet 1 tab PO BID Qty: 14 0RF No Action pantoprazole 40 mg tablet,delayed release (DR/EC) 40 mg PO DAILY Qty: 30 2RF clotrimazole [Antifungal (clotrimazole)] 1 % cream 1 appl topical BID PRN (Reason: abdominal pannus rash) Qty: 45 3RF sucralfate 100 mg/mL suspension 10 ml PO BID Qty: 400 2RF
--- NOTE | 2021-04-08 09:48 | PC.NURSE ---
pt a&o, denies any sob or chest pain. Provider into assess pt. Pt will be medicated mar.
[2021-04-08] MEDS: Lidocaine HCl 1 % MPF 5 ML VIAL SUBCUT (10:01)
--- NOTE | 2021-04-08 10:07 | PC.NURSE ---
provider in to complete a bedside procedure.
[2021-04-08 10:10] VITALS: BP 124/81; PULSE 81; O2SAT 98
[2021-04-08] MEDS: Amoxicillin/Potassium Clav 875 MG TABLET PO (10:35)
== END 2021-04-08 10:31 | disposition home or self-care (01) ==
PROVIDERS: Emergency Provider Emergency Medicine; PCP Internal Medicine
DX: J34.0 Abscess, furuncle and carbuncle of nose (principal)
CPT/HCPCS: 30000; 99284

== ENCOUNTER → 2021-04-21 08:21 | Outpatient (BNVA) | payer MEDICAID, SELFPAY | PROVIDERS: PCP Internal Medicine; Visit Provider Physician Assistant Surgical | DX: E66.9 Obesity, unspecified (principal); F17.210 Nicotine dependence, cigarettes, uncomplicated; L98.7 Excessive and redundant skin and subcutaneous tissue; Z71.3 Dietary counseling and surveillance; Z98.84 Bariatric surgery status | CPT/HCPCS: 99212 ==

== ENCOUNTER → 2021-06-09 09:18 | Outpatient (BNVA) | payer MEDICAID, SELFPAY | PROVIDERS: PCP Internal Medicine; Referring Provider Surgery; Visit Provider Physician Assistant | DX: E66.9 Obesity, unspecified (principal); L98.7 Excessive and redundant skin and subcutaneous tissue; Z98.84 Bariatric surgery status; Z68.30 Body mass index [BMI] 30.0-30.9, adult | CPT/HCPCS: 99212 ==

== ENCOUNTER 2021-07-27 10:59 | Outpatient (REF) | payer MEDICAID, SELFPAY ==
--- NOTE | ~2021-07-27 | MM_ITS ---
EXAMINATION: MM DIAGNOSTIC DIGITAL BREAST TOMOSYNTHESIS, BILATERAL US DIAGNOSTIC ULTRASOUND BREAST, RIGHT CLINICAL INFORMATION: 31-year-old with chronic palpable fullness right breast several centimeter in size with intermittent cyclical pain. Personal history significant weight loss following gastric sleeve. No prior breast imaging. Family history breast cancer mother, age 42 and paternal grandmother, age 51. Patient BRCA neg-. The lifetime risk of breast cancer based on the Tyrer-Cuzick Model is 19%. COMPARISON: None (current study represents initial baseline exam). TECHNIQUE: Digital breast tomosynthesis is performed in both the craniocaudal and mediolateral oblique views along with computer-aided detection (CAD). Synthesized 2D images are generated from the tomosynthesis. Ultrasound right breast is targeted to the areas of clinical concern right breast. Patient is able to point to the region at time of imaging. Grayscale imaging and color Doppler are performed without and with harmonics. Imaging performed 8:00 through 2:00. FINDINGS: There are scattered areas of fibroglandular density (ACR BI-RADS breast composition Category b). There are no significant masses, abnormal calcifications, or other abnormalities. The axilla and skin contours are unremarkable. No skin thickening or coarsening of the Isaak's ligaments. Ultrasound shows no cystic or solid mass or architectural abnormality. No focal duct ectasia. No skin thickening or edema tracking in soft tissue planes. Results are discussed with the patient at time of visit. Given the family history, routine annual screening mammography is recommended, next imaging due in 12 months. MM/MM tomosynthesis diagnostic BI IMPRESSION: -No mammographic evidence of malignancy or inflammatory changes. -Unremarkable ultrasound right breast. ASSESSMENT: BI-RADS 1: Negative RECOMMENDATION: 1. Patient should be managed based on the clinical impression. If clinically indicated, further evaluation may be considered with surgical consult. Decision to proceed with biopsy should be based on clinical grounds and degree of clinical concern. 2. Otherwise, routine annual screening mammography. This patient's information was entered into a reminder system with a target due date for their next mammogram.
== END 2021-07-27 11:00 | disposition home or self-care (01) ==
LOC: HO.MAMMO 10:59
PROVIDERS: PCP Internal Medicine; Visit Provider Internal Medicine
DX: N63.12 Unspecified lump in the right breast, upper inner quadrant (principal)
CPT/HCPCS: 76642; 77062; 77066

== ENCOUNTER 2022-06-01 16:25 | Emergency (ER) | payer MEDICAID, SELFPAY ==
--- NOTE | ~2022-06-01 | XR_ITS ---
EXAMINATION: XR KNEE, LEFT CLINICAL INFORMATION: Left knee pain COMPARISON: None available. TECHNIQUE: Four views of the left knee. FINDINGS: Status post ACL repair. Hardware intact. Medial degenerative change observed. There is no fracture, dislocation or destructive lesion. Mild patellofemoral spurring is observed. No joint effusion. XR/XR knee LT 4V IMPRESSION: Postsurgical changes observed. No acute findings.
[2022-06-01 16:31] VITALS: BP 144/86; PULSE 89; RESP 18; TEMP 36.4; O2SAT 100; BMI 37.5
--- NOTE | 2022-06-01 16:31 | ED.GENADULT ---
HPI - General Adult General Chief complaint: Extremity Injury, Lower <CB Lee - Last Filed: 06/01/22 16:35> Stated complaint: left knee injury/pain <CB Lee - Last Filed: 06/01/22 16:35> Time Seen by Provider: 06/01/22 18:56 <CB Lee - Last Filed: 06/01/22 16:35> Source: patient, RN notes reviewed and old records reviewed <Solis Reich - Last Filed: 06/01/22 19:34> Mode of arrival: ambulatory <Solis Reich - Last Filed: 06/01/22 19:34> Limitations: no limitations <Solis Reich - Last Filed: 06/01/22 19:34> History of Present Illness HPI narrative: 31-year-old female presents for evaluation of left knee pain. She reports a remote history of left knee ACL repair Patient states that early this morning she was walking down the stairs, she felt as though her left heel caught the stair unintentionally causing her left leg to give out. She was able to the support herself with did not fall to the ground However she reports that she felt a pop in the left knee and the left knee is now causing pain to the outside of the knee and she states that it feels weak ?like it is going to give out. ? She called her doctor and was sent here for evaluation <Solis Reich - Last Filed: 06/01/22 19:34> Related Data Home medications: Home Medications Medication Instructions Recorded Confirmed celebrate Calderon +D PO BID 04/21/21 04/21/21 celebrate MVI PO DAILY 04/21/21 04/21/21 <CB Lee - Last Filed: 06/01/22 16:35> Allergies/adverse reactions: Allergies Allergy/AdvReac Type Severity Reaction Status Date / Time No Known Allergies Allergy Verified 06/01/22 16:31 [No Known Allergies*] <CB Lee Last Filed: 06/01/22 16:35> Review of Systems Musculoskeletal: Musculoskeletal: Reports arthralgias and Reports joint swelling <Solis Reich - Last Filed: 06/01/22 19:34> [facility] Past Medical History Medical History: Medical History Arthritis COVID-19 vaccine series completed Encounter for Essure implantation GERD (gastroesophageal reflux disease) History of hypertension Hx of hidradenitis suppurativa Hypertension Renal calculi <CB Lee - Last Filed: 06/01/22 16:35> Surgical History: Surgical History History of ankle fusion History of repair of ACL History of sleeve gastrectomy Hx of cystoscopy Hx of wisdom tooth extraction <CB Lee - Last Filed: 06/01/22 16:35> Family History Family History: Family History Mother Breast cancer Father Deaf Knee problem Sister No problems noted. Sister Allergies Brother Muscular dystrophies Brother No problems noted. <CB Lee - Last Filed: 06/01/22 16:35> Social History Social History: Social History (Updated 06/09/21 @ 09:24 by Elba Ibarra, [facility]) Are you a primary healthcare market consultant to a significant other at home: No Do you presently have visiting nurse or other home services: No Alcohol intake: former Patient Tobacco Use Status: Current everyday Tobacco user Tobacco use type: Cigarette Cigarettes Per Day: 8 Advance Directives: No Advance Directives Information Provided: No service: No <CB Lee - Last Filed: 06/01/22 16:35> Physical Exam ED Vital Signs: Vital Signs - 24 hr 06/01/22 16:31 Temperature 97.6 F Pulse Rate 89 Respiratory Rate 18 Blood Pressure 144/86 H Pulse Oximetry 100 Oxygen Delivery Method Room Air BMI result Body Mass Index 37.5 <CB Lee - Last Filed: 06/01/22 16:35> Vital Signs - 24 hr 06/01/22 16:31 Temperature 97.6 F Pulse Rate 89 Respiratory Rate 18 Blood Pressure 144/86 H Pulse Oximetry 100 Oxygen Delivery Method Room Air BMI result Body Mass Index 37.5 <Solis Reich - Last Filed: 06/01/22 19:34> Const General: healthy appearing, comfortable, no acute distress, alert and awake <Solis Reich - Last Filed: 06/01/22 19:34> Nutritional Appearance: well nourished <Solis Reich Last Filed: 06/01/22 19:34> Orientation/consciousness: patient oriented x3 <Solistommy Ruanoy - Last Filed: 06/01/22 19:34> Skin General skin exam: no rashes or lesions noted and elasticity normal <Solistommy Ruanoy - Last Filed: 06/01/22 19:34> Neuro General: patient oriented x3 <Solistommy Ruanoy - Last Filed: 06/01/22 19:34> Cranial nerves: Yes Bilaterally intact EOM present <Solis Ruanoy - Last Filed: 06/01/22 19:34> Cognition (Neuro): normal cognition <Solis Ruanoy - Last Filed: 06/01/22 19:34> Extrem Other: Left anterior knee surgical scar. No significant joint effusion. There is negative valgus/varus strain. The patient has full range of motion to the left knee with flexion and extension. No laxity with anterior drawer testing. She is however tender to palpation in the left lateral knee <Solis Reich - Last Filed: 06/01/22 19:34> Course Course Course Narrative: This is an RME: Additional HPI, ROS, PE not included below will be deferred to primary provider. 31 year old F with PMH of left ACL replacement presents with left lateral knee pain that wraps around the back of the knee and popping sensation after a fall down stairs. Patient reports the knee feels unstable. Pain is 4-5/10. Denies headstrike. PE: benign, patient ambulating Plan: imaging <CB Lee - Last Filed: 06/01/22 16:35> Medical Decision Making Medical Decision Making MDM Narrative: X-ray left knee without acute findings. Will treat the patient has a left knee sprain and she will follow up her PCP. Patient declines crutches or a cane as she states she has these available at home. <Solis Reich - Last Filed: 06/01/22 19:34> Differential Diagnosis Left knee sprain Contusion Ligamentous injury Meniscus injury <Solis Reich - Last Filed: 06/01/22 19:34> Discharge Plan Discharge Clinical Impression: Acute pain of left knee <CB Lee - Last Filed: 06/01/22 16:35> Patient Disposition: Home, Self-Care <CB Lee - Last Filed: 06/01/22 16:35> Instructions: Knee Pain (ED) <CB Lee - Last Filed: 06/01/22 16:35> Additional Instructions: Your x-ray was negative for fracture. Continue ice, elevation, rest, acetaminophen as you cannot take ibuprofen Follow-up to her primary doctor if her symptoms do not improve you may need further evaluation and treatment to rule out LCL or lateral meniscus injury <CB Lee - Last Filed: 06/01/22 16:35> Prescriptions: No Action celebrate MVI PO DAILY celebrate Calderon +D PO BID <CB Lee - Last Filed: 06/01/22 16:35> Stand Alone Forms: Work/School Release <CB Lee Last Filed: 06/01/22 16:35>
== END 2022-06-01 19:56 | disposition home or self-care (01) ==
PROVIDERS: Emergency Provider Emergency Medicine Emergency Medical Services; PCP General Practice
DX: M25.562 Pain in left knee (principal); F17.210 Nicotine dependence, cigarettes, uncomplicated; Z71.6 Tobacco abuse counseling
CPT/HCPCS: 73564; 99282; 99283

== ENCOUNTER 2022-10-05 00:07 | Emergency (ER) | payer MEDICAID, SELFPAY ==
--- NOTE | ~2022-10-05 | CT_ITS ---
EXAMINATION: CT ABDOMEN AND PELVIS WITHOUT CONTRAST CLINICAL INFORMATION: Left flank pain. History of kidney stones. COMPARISON: Abdominal ultrasound from [address] of the abdomen and pelvis June 2016 TECHNIQUE: Multidetector volumetric imaging was performed from the superior aspect of the liver through the pubic symphysis. Sagittal and coronal reformatted images were obtained on the technologist's workstation. This CT examination was performed using dose optimization techniques as appropriate, variously including the following: *Automated exposure control *Adjustment of mA and/or kV according to patient size (this includes techniques or standardized protocols for targeted exams where dose is matched to indication/reason for exam; i.e. extremities or head) *Use of iterative reconstruction technique DLP: 814 mGy-cm FINDINGS: LUNG BASES: The visualized lung bases are unremarkable. LIVER, GALLBLADDER, AND BILIARY TREE: The liver is normal in size, shape, and attenuation. No focal hepatic lesion or biliary ductal dilatation is present. The gallbladder is contracted PANCREAS: Unremarkable. SPLEEN: Unremarkable. ADRENAL GLANDS: Unremarkable. KIDNEYS AND URETERS: Moderate left hydronephrosis and ureteral dilatation from 2 distal left ureteral adjacent stones measuring 3 and 4 mm. Several small stones in the upper pole of the left kidney, largest measuring 3 mm. Normal right kidney. No right hydronephrosis. BLADDER: Unremarkable. GASTROINTESTINAL TRACT: Postsurgical changes from gastric sleeve. Small and large bowel is unremarkable. The appendix is unremarkable. ABDOMINAL WALL: Diastasis of the rectus muscles very small umbilical hernia. LYMPH NODES: Normal. VASCULAR: Unremarkable. PELVIC VISCERA: Probable bilateral ovarian cysts measuring 2.5 cm on the right and 3 cm on the left. No imaging follow-up recommended. OSSEOUS STRUCTURES: Mild degenerative changes of the spine and hip joints. CT/CT abdomen pelvis wo IV con IMPRESSION: Mild to moderate left hydronephrosis and ureteral dilatation from 2 adjacent left distal ureteral stones. Small stones in the upper pole of the left kidney. Fleischner guidelines were followed.
[2022-10-05 00:20] VITALS: BP 136/90; PULSE 86; RESP 20; TEMP 37; O2SAT 98; BMI 39.1
[2022-10-05 01:23] LABS: Hematocrit 38.8 % (37.0-47.0); Hemoglobin 13.2 g/dl (12.0-16.0); Mean Corpuscular Hemoglobin 30.8 pg (27.0-33.0); Mean Corpuscular Volume 90.7 fL (80.0-98.0); Mean Platelet Volume 10.9 fL (9.4-12.3); Platelet Count 206 X10*3/uL (160-400); Red Blood Count 4.28 X10*6/uL (4.20-5.50); Red Cell Distribution Width 11.6 % (11.0-16.0); White Blood Count 8.8 X10*3/uL (4.8-10.8)
[2022-10-05 01:37] LABS: Alanine Aminotransferase 10 U/L (0-31); Albumin Level 3.8 g/dL (3.5-5.0); Alkaline Phosphatase 51 U/L (39-117); Anion Gap 10 (12-20); Aspartate Amino Transferase 14 U/L (5-31); Bilirubin Total 0.2 mg/dL (0.0-1.0); Blood Urea Nitrogen 14 mg/dL (9-16); Calcium 9.1 mg/dL (8.4-10.2); Carbon Dioxide 25 mmol/L (22-29); Chloride 108 mmol/L (96-108); Creatinine Clr Calc Pharmacy 125.5; Estimated Glomerular Filt Rate > 60; Glucose Random 91 mg/dL (60-115); Lipase 28 U/L (8-78); Sodium 139 mmol/L (135-145); Total Protein 6.5 g/dL (6.5-8.0)
[2022-10-05 01:51] VITALS: BP 115/80; PULSE 86; RESP 18; TEMP 36.8; O2SAT 100
[2022-10-05 02:04] LABS: Appearance Urine Clear; Color Urine Yellow; Glucose Urine UA Negative (Negative); Leukocyte Esterase Urine Negative (Negative); Nitrite Urine Negative (Negative); Specific Gravity - Urine 1.025 (1.005-1.025); UMIC TRIGGER UACC YES; Urine Blood Trace (Negative); Urine Ketones Negative (Negative); Urine Protein Negative (Neg-Trace)
[2022-10-05 02:07] LABS: Bacteria Urine Trace (None Seen); Hyaline Casts Urine 0-2 /LPF (0-2); RBC Urine 0-2 /HPF (0-2); WBC Urine 0-5 /HPF (0-5)
--- NOTE | 2022-10-05 04:11 | ED_ITS ---
HPI - General Adult General Chief complaint: Abdominal Pain Stated complaint: Left Flank pain Time Seen by Provider: 10/05/22 04:05 Source: patient Mode of arrival: ambulatory Limitations: no limitations History of Present Illness HPI narrative: Patient comes to the emergency room complaining of left-sided flank pain. Patient states that about 3 weeks ago she had an episode of suprapubic pain and left flank pain. Went away, today she started having symptoms again. Patient states that she has history of kidney stones and it feels very similar to the last time she had stones. Patient states that the last time that she had kidney stones, she needed surgery to have the stones removed. Patient denies nausea vomiting, no hematuria or dysuria, denies fever and chills. Patient denies fall or trauma Related Data Home Medications Medication Instructions Recorded Confirmed celebrate Calderon +D PO BID 04/21/21 04/21/21 celebrate MVI PO DAILY 04/21/21 04/21/21 Allergies Allergy/AdvReac Type Severity Reaction Status Date / Time No Known Allergies Allergy Verified 06/01/22 16:31 [No Known Allergies*] Review of Systems Review of Systems: Constitutional : No Weight loss, No Fever, No Chills, No Night Sweats, No Fatigue, No Malaise ENT/Mouth : No Hearing loss, No Ear Pain, No Nasal Congestion, No Sinus Pain, No Hoarseness, No sore throat, No Rhinorrhea, No Swallowing Difficulty Eyes: No Eye Pain, No Swelling, No Redness, No Foreign Body, No Discharge, No Vision Changes Cardiovascular : No Chest Pain, No SOB, No Dyspnea on Exertion, No Orthopnea, No Edema, No Palpitations Respiratory : No Cough, No Sputum, No Wheezing, No Smoke Exposure, No Dyspnea Gastrointestinal : No Nausea, No Vomiting, No Diarrhea, No Constipation, No abdominal Pain, No Hematochezia, No Melena Genitourinary : no irregular bleeding, No Dysuria, No Urinary Frequency, No Hematuria, No Urinary Incontinence, No Urgency, complaining of left-sided Flank Pain, No Urinary Flow Changes, No Hesitancy Musculoskeletal : No joint pain, No Myalgias, No Joint Swelling Skin : No Skin Lesions, No rash Neuro : No Weakness, No Numbness, No Paresthesias, No Loss of Consciousness, No Dizziness, No Headache Psych : No Anxiety/Panic, No Depression, No SI/HI/AH/VH, No Social Issues, Heme/Lymph: No Bruising, No Bleeding,No Lymphadenopathy Endocrine : No Polyuria, No Polydipsia, No Temperature Intolerance [facility] Past Medical History Medical History Arthritis COVID-19 vaccine series completed Encounter for Essure implantation GERD (gastroesophageal reflux disease) History of hypertension Hx of hidradenitis suppurativa Hypertension Renal calculi Surgical History History of ankle fusion History of repair of ACL History of sleeve gastrectomy Hx of cystoscopy Hx of wisdom tooth extraction Family History Family History Mother Breast cancer Father Deaf Knee problem Sister No problems noted. Sister Allergies Brother Muscular dystrophies Brother No problems noted. Social History Social History (Updated 06/09/21 @ 09:24 by Elba Ibarra DIRECTORY ASSISTANCE OPERATOR) Are you a primary insurance healthcare consultant to a significant other at home: No Do you presently have visiting nurse or other home services: No Alcohol intake: former Patient Tobacco Use Status: Current everyday Tobacco user Tobacco use type: Cigarette Cigarettes Per Day: 8 Smoked in Last 30 Days: No Advance Directives: No Advance Directives Information Provided: No service: No Physical Exam ED Vital Signs: Vital Signs - 24 hr 10/05/22 00:20 10/05/22 01:51 10/05/22 04:12 Temperature 98.6 F 98.3 F 97.9 F Pulse Rate 86 86 79 Respiratory Rate 20 18 18 Blood Pressure 136/90 H 115/80 115/72 Pulse Oximetry 98 100 96 Oxygen Delivery Method Room Air Room Air Room Air 10/05/22 06:01 Temperature 97.7 F Pulse Rate 82 Respiratory Rate 15 Blood Pressure 119/69 Pulse Oximetry 95 Oxygen Delivery Method Room Air BMI result Body Mass Index 39.1 Const Other: Appearance: Alert. Oriented X3. No acute distress, well-appearing. Eyes: Pupils equal, round and reactive to light. ENT: Pharynx normal. Neck: Normal inspection. Neck supple. No lymph nodes noted. No crepitus CVS: Normal heart rate and rhythm. Pulses normal. Normal S1 and S2 Respiratory: No respiratory distress. Breath sounds normal. No Wheezing. No rales Abdomen: Soft and nontender. No rigidity. No distention. , mild CVA tenderness on the left Skin: Skin warm and dry. Normal skin color. Normal skin turgor. Extremities: No lower extremity edema. No Lacerations. No Rash Neuro: Oriented X 3. No motor deficit. No sensory deficit. Moving all extremities. No slurred speech. CN 2 through 12 grossly intact Psych: calm, cooperative, normal affect Medical Decision Making Medical Decision Making MDM Narrative: -my interpretation of labs: Normal white blood cell count, normal chemistry, urinalysis negative for UTI or blood. -CT scan pending. The system is down, I cannot see the images and neither can [facility]. -sign-out given to Dr. Monterroso Differential Diagnosis Differential Diagnoses: The differential diagnosis associated with the presentation includes (Ureterolithiasis, renal colic, pyelonephritis, musculoskeletal pain) Admission/Observation Consideration of admission/observation: Escalation of care including admission/observation considered (Patient has history of kidney stones, complaining of pain, admission has been considered) Lab Data 10/05/22 01:18 10/05/22 01:18 Labs: Lab Results 10/05/22 10/05/22 10/05/22 Range/Units 01:18 01:18 01:58 WBC 8.8 (4.8-10.8) X10*3/uL RBC 4.28 (4.20-5.50) X10*6/uL Hgb 13.2 (12.0-16.0) g/dl Hct 38.8 (37.0-47.0) % MCV 90.7 (80.0-98.0) fL MCH 30.8 (27.0-33.0) pg MCHC 34.0 (31.0-35.0) g/dl RDW 11.6 (11.0-16.0) % Plt Count 206 (160-400) X10*3/uL MPV 10.9 (9.4-12.3) fL Absolute Nucleated RBC 0.000 (0.0-0.012) X10*3/uL Nucleated RBC % (auto) 0.0 (0.0-0.2) /100WBC Sodium 139 (135-145) mmol/L Potassium 4.0 (3.3-5.1) mmol/L Chloride 108 (96-108) mmol/L Carbon Dioxide 25 (22-29) mmol/L Anion Gap 10 L (12-20) BUN 14 (9-16) mg/dL Creatinine 0.72 (0.5-1.4) mg/dL Estim Creat Clear Calc 125.5 Estimated GFR > 60 Random Glucose 91 (60-115) mg/dL Calcium 9.1 D (8.4-10.2) mg/dL Total Bilirubin 0.2 (0.0-1.0) mg/dL AST 14 (5-31) U/L ALT 10 (0-31) U/L Alkaline Phosphatase 51 (39-117) U/L Total Protein 6.5 (6.5-8.0) g/dL Albumin 3.8 (3.5-5.0) g/dL Lipase 28 (8-78) U/L Urine Color Yellow Urine Appearance Clear Urine pH 6.0 (5.0-9.0) Ur Specific [place] 1.025 (1.005-1.025) Urine Protein Negative (Neg-Trace) mg/dL Urine Glucose (UA) Negative (Negative) mg/dL Urine Ketones Negative (Negative) mg/dL Urine Blood Trace (Negative) Urine Nitrite Negative (Negative) Ur Leukocyte Esterase Negative (Negative) Urine RBC 0-2 (0-2) /HPF Urine WBC 0-5 (0-5) /HPF Ur Squamous Epith Cells 6-10 (0-2) /HPF Urine Bacteria Trace (None Seen) Hyaline Casts 0-2 (0-2) /LPF Critical Care Time Critical Care Time Critical Care Time: Yes Total Critical Care Time: 60 Attestation: I have personally provided critical care time. Time includes review of lab data, radiology results, discussion with consultants, and monitoring for potential decompensation. Intervention performed as documented. Discharge Plan Discharge Clinical Impression: Acute flank pain Patient Disposition: Still a Patient Prescriptions: No Action celebrate MVI PO DAILY celebrate Calderon +D PO BID
[2022-10-05 04:12] VITALS: BP 115/72; PULSE 79; RESP 18; TEMP 36.6; O2SAT 96
[2022-10-05 06:01] VITALS: BP 119/69; PULSE 82; RESP 15; TEMP 36.5; O2SAT 95
[2022-10-05 07:28] VITALS: BP 116/71; PULSE 79; RESP 16; TEMP 36.6; O2SAT 96
--- NOTE | 2022-10-05 07:29 | PC.NURSE ---
awake, resting quietly in room. reporting relief from most of her pain at this time. pt updated on waiting for official read from CT scan. call newman within reach
[2022-10-05 07:38] VITALS: BP 114/75; PULSE 72; RESP 20; TEMP 36.6; O2SAT 94
== END 2022-10-05 08:40 | disposition home or self-care (01) ==
PROVIDERS: Emergency Medicine; Emergency Provider Student in an Organized Health Care Education/Training Program
DX: N13.2 Hydronephrosis with renal and ureteral calculous obstruction (principal); I10 Essential (primary) hypertension; K21.9 Gastro-esophageal reflux disease without esophagitis; Z98.84 Bariatric surgery status; F17.210 Nicotine dependence, cigarettes, uncomplicated
CPT/HCPCS: 36415; 74176; 80053; 81001; 83690; 85027; 99284

== ENCOUNTER 2023-07-31 17:21 | Emergency (ER) | payer MEDICAID, SELFPAY ==
--- NOTE | ~2023-07-31 | XR_ITS ---
EXAMINATION: XR HAND, RIGHT CLINICAL INFORMATION: Right thumb pain. COMPARISON: None available. TECHNIQUE: PA, lateral, and oblique views of the right hand. FINDINGS: Very subtle bone fragment adjacent to the radial surface of the distal interphalangeal joint of the first digit/thumb. No dislocation. No significant soft tissue abnormality. XR/XR hand RT 2V IMPRESSION: Very subtle bone fragment adjacent to the radial surface of the distal interphalangeal joint of the first digit/thumb which could represent an avulsion injury. Correlate for point tenderness.
[2023-07-31 17:45] VITALS: BP 153/91; PULSE 83; RESP 20; TEMP 36.4; O2SAT 98; BMI 41.0
--- NOTE | 2023-07-31 17:48 | ED.UPPEXIN ---
HPI - Extremity Injury (Upper) General Chief Complaint: Extremity Injury, Upper Stated Complaint: Thumb pain, no injury Time Seen by Provider: 07/31/23 20:35 Source: patient Mode of arrival: ambulatory Limitations: no limitations History of Present Illness ED Provider: Kiera Mcconnell PA-C HPI narrative: Patient is a 33 year old assigned female at with a history of HTN presenting to the emergency department today with right thumb pain / swelling. Patient states that she woke up yesterday with right thumb pain and swelling. Patient denies any dizziness, lightheadedness, abdominal pain, nausea, vomiting, fever, chills, blurry vision, double vision, loss of vision, chest pain, difficulty breathing, shortness of breath, back pain, night sweats, pain with urination, increased urinary frequency, increased urinary urgency, blood in her urine or stool, syncope or a near syncopal episode, recent trauma or falls, bowel incontinence, bladder incontinence, or any other complaints at this time. Relieving factors: none Exacerbating factors: none Associated symptoms: denies other symptoms Related Data Home Medications ?Medication ?Instructions ?Recorded ?Confirmed celebrate Calderon +D PO BID 04/21/21 04/21/21 celebrate MVI PO DAILY 04/21/21 04/21/21 Previous Rx's ?Medication ?Instructions ?Recorded prednisone 20 mg tablet 20 mg PO DAILY #4 tabs 10/05/22 tamsulosin 0.4 mg capsule (Flomax) 0.4 mg PO BEDTIME #4 caps 10/05/22 Allergies Allergy/AdvReac Type Severity Reaction Status Date / Time No Known Allergies Allergy Verified 07/31/23 17:48 [No Known Allergies*] Review of Systems Constitutional: Constitutional: Reports no additional constitutional complaints, Denies chills, Denies fever(s) and Denies night sweats Eyes: Eyes: Reports no additional eye complaints, Denies blurry vision, Denies change in vision, Denies diplopia, Denies eye discharge, Denies loss of vision and Denies eye pain ENT: Denies dizziness Cardiovascular: Cardiovascular: Reports no additional cardiovascular complaints, Denies chest pain, Denies lightheadedness, Denies Loss of Consciousness and Denies dyspnea Respiratory: Respiratory: Reports no additional respiratory complaints and Denies dyspnea Gastrointestinal: Gastrointestinal: Reports no additional gastrointestinal complaints, Denies abdominal pain, Denies melena, Denies hematochezia, Denies change in bowel habits and Denies change in stool character Genitourinary: Genitourinary: Denies hematuria, Denies urinary frequency, Denies dysuria, Denies urinary incontinence, Denies urinary hesitancy and Denies urinary urgency Musculoskeletal: Musculoskeletal: Reports no additional musculoskeletal complaints, Denies numbness and Denies tingling Comments: right thumb pain Neurologic: Denies dizziness, Denies loss of vision, Denies numbness and Denies tingling Psychiatric: Psychiatric: Reports no additional psychiatric complaints Endocrine: Endocrine: Reports no additional endocrine complaints Hematologic/Lymphatic: Hematologic/Lymphatic: Reports no additional hematologic/lymphatic complaints Allergic/Immunologic: Allergic/Immunologic: Reports no additional allergic/immunologic complaints PMFSH Past Medical History Attestation statement: The following information was validated with the patient. Source: old records reviewed and nursing notes reviewed Medical History Hypertension Arthritis GERD (gastroesophageal reflux disease) Renal calculi COVID-19 vaccine series completed Encounter for Essure implantation History of hypertension Hx of hidradenitis suppurativa Surgical History Hx of wisdom tooth extraction History of sleeve gastrectomy Hx of cystoscopy History of ankle fusion History of repair of ACL Family History Family History Mother Breast cancer Father Deaf Knee problem Sister No problems noted. Sister Allergies Brother Muscular dystrophies Brother No problems noted. Social History Social History Are you a primary career and technology education teacher to a significant other at home: No Do you presently have visiting nurse or other home services: No Alcohol intake: former Patient Tobacco Use Status: Current everyday Tobacco user Tobacco use type: Cigarette Cigarettes Per Day: 8 Advance Directives: No Advance Directives Information Provided: No Do you have a plan to hurt others: No Plan service: No Physical Exam Vital Signs: Vital Signs: Last Vital Signs Temp 98.6 F 07/31/23 21:11 Pulse 81 07/31/23 21:11 Resp 20 07/31/23 21:11 BP 126/97 H 07/31/23 21:11 Pulse Ox 99 07/31/23 21:11 O2 Del Method Room Air 07/31/23 21:11 BMI result Body Mass Index 41.0 Const: General: cooperative, no acute distress, alert and awake Nutritional Appearance: well nourished Orientation/consciousness: patient oriented x3 Limitations: no limitations HEENT: Head: Yes normal to inspection and Yes atraumatic Ears: hearing grossly normal bilaterally and external ears normal General nose exam: Normal external nose present, no nasal discharge noted and no epistaxis Face and sinus: Yes normal facial exam, No abrasion and No laceration Mouth: Normal oral and palatal mucosa present, no drooling and no muffled voice Eyes: General: appearance normal, both eyes and all related structures Periorbital: periorbital findings normal Eyelids: Yes eyelids normal Conjunctivae: conjunctivae normal Pupils: Equal, round and reactive pupils present EOM: EOMs intact bilaterally Neck: Neck: Yes normal visual inspection, Yes full ROM and Yes no lymphadenopathy Chest: Chest palpation & inspection: normal inspection of the chest Resp: Effort & Inspection: normal respiratory effort and able to speak in complete sentences GI: Inspection: Yes normal to inspection Neuro: General: patient oriented x3 and moves all extremities Cranial nerves: Yes Equal, round and reactive pupils present Cognition (Neuro): normal cognition Motor exam (neuro): 5/5 motor strength present throughout Sensory Exam: Normal double simultaneous stimulation for sensation Coordination: [id number] test normal Extrem: Other: minimal swelling present in the interphalangeal joint of the right thumb General: Yes full ROM and Yes capillary refill normal Psych: Appearance: grossly normal Mental Status: mental status grossly normal Affect: normal affect Attitude: cooperative Thought process: Normal thought process present Thought content: Normal thought content present Insight: Good insight present (Psych) Course Course Course Narrative: This is a Rapid Medical Exam performed in triage by Penny Stevenson PA-C. Full HPI, ROS and PE to be performed by primary ED provider. 33 year-old F w/ no significant PMHx presenting to the ED c/o right thumb pain and swelling since yesterday without known injury or trauma PE: + swelling/palpable lump with tenderness to right thumb PIP. Limited ROM secondary to pain Plan: X-ray ordered Medical Decision Making Medical Decision Making MDM Narrative: Patient is a 33 year old assigned female at with a history of HTN presenting to the emergency department today with right thumb pain. Patient's physical exam was as noted in the physical exam portion of this note. Patient's right hand x-ray showed a possible avulsion fracture at the distal interphalangeal joint. I explained my physical exam findings as well as all test results to the patient. I answered all questions asked by the patient. Patient's right thumb was placed in a splint, without incident. Patient's PMS was intact prior to and after splint placement. I stressed the importance of the patient taking her medication as prescribed. I stressed the importance of the patient following up with her primary care provider and an orthopedic provider. I stressed the importance of the patient returning to the emergency department immediately if her symptoms were to worsen or if she were to develop any dizziness, shortness of breath, difficulty breathing, chest pain, blurry vision, loss of vision, nausea, vomiting, abdominal pain, fever, chills, back pain, or any other complaints. Patient verbalized agreement and understanding with this treatment plan and discharge. Differential Diagnosis Differential Diagnoses: The differential diagnosis associated with the presentation includes Avulsion fracture Thumb injury Thumb pain Admission/Observation Consideration of admission/observation: Escalation of care including admission/observation considered Patient would have been admitted to the hospital had her work up had any findings where hospital admission was appropriate and her clinical presentation warranted hospital admission. Independent Interpretation I performed an independent interpretation of an: Plain X-Ray Interpretation: My interpretation is in agreement with the radiologist's impression of this imaging study. EXAMINATION: XR HAND, RIGHT CLINICAL INFORMATION: Right thumb pain. COMPARISON: None available. TECHNIQUE: PA, lateral, and oblique views of the right hand. FINDINGS: Very subtle bone fragment adjacent to the radial surface of the distal interphalangeal joint of the first digit/thumb. No dislocation. No significant soft tissue abnormality. XR/XR hand RT 2V IMPRESSION: Very subtle bone fragment adjacent to the radial surface of the distal interphalangeal joint of the first digit/thumb which could represent an avulsion injury. Correlate for point tenderness. Dictated By: Luisa Yan Signed By: Electronically signed by Luisa Yan 07/31/23 [id number] Radiology Impression Discussion of test interpretation with radiology: I have reviewed the radiologist's reading. Discharge Plan Discharge Clinical Impression: Avulsion fracture of thumb Patient Disposition: Home, Self-Care Instructions: Finger Fracture (ED) Additional Instructions: Do NOT remove the splint until instructed to do so by the orthopedic provider. If your finger begins to have tingling / numbness, you may loosen what is securing the splint. Follow up with your primary care provider and an orthopedic provider. Return to the emergency department immediately if your symptoms worsen or if you develop any dizziness, shortness of breath, difficulty breathing, chest pain, blurry vision, loss of vision, nausea, vomiting, abdominal pain, fever, chills, back pain, or any other complaints. Prescriptions: No Action tamsulosin [Flomax] 0.4 mg capsule 0.4 mg PO BEDTIME Qty: 4 0RF prednisone 20 mg tablet 20 mg PO DAILY Qty: 4 0RF celebrate MVI PO DAILY celebrate Calderon +D PO BID Referrals: [facility] [Provider Group] (Call to establish and follow up with an orthopedic provider. ) [facility] [Primary Care Provider] - Stand Alone Forms: Work/School Release Interventions: ED Discharge Assessment Last Done: 07/31/23 21:11 Discharge Date/Time: 07/31/23 21:12 Print Language: Yoruba
[2023-07-31 20:30] VITALS: BP 126/97; PULSE 81; RESP 20; TEMP 37; O2SAT 99
[2023-07-31 21:11] VITALS: BP 126/97; PULSE 81; RESP 20; TEMP 37; O2SAT 99
--- NOTE | 2023-07-31 21:11 | PC.NURSE ---
splint applied to right thumb by tech. pt tolerated well.
== END 2023-07-31 21:12 | disposition home or self-care (01) ==
PROVIDERS: Emergency Provider Internal Medicine
DX: S62.521A Displaced fracture of distal phalanx of right thumb, initial encounter for closed fracture (principal); M79.641 Pain in right hand; X58.XXXA Exposure to other specified factors, initial encounter; Y93.9 Activity, unspecified; Y92.9 Unspecified place or not applicable; Y99.8 Other external cause status
CPT/HCPCS: 29130; 73120; 99282; 99283; 99284

== ENCOUNTER 2023-08-08 09:25 | Outpatient (REF) | payer MEDICAID, SELFPAY ==
--- NOTE | ~2023-08-08 | XR_ITS ---
EXAMINATION: XR HAND, RIGHT CLINICAL INFORMATION: Pain in right hand, attention right thumb. COMPARISON: 07/31/2023. TECHNIQUE: 2 views of the right thumb and 2 views of the right hand. FINDINGS: Increased sclerosis and decreased size of previously identified very subtle bone fragment adjacent to the radial surface of the first digit/thumb distal interphalangeal joint. No significant dislocation. XR/XR hand RT min 3V IMPRESSION: Increased sclerosis and decreased size of previously identified very subtle bone fragment adjacent to the radial surface of the first digit/thumb distal interphalangeal joint, possibly related to fracture. Correlation with clinical exam recommended to determine further management.
== END 2023-08-08 09:26 | disposition home or self-care (01) ==
LOC: HO.HOSX 09:25
DX: S62.501A Fracture of unspecified phalanx of right thumb, initial encounter for closed fracture (principal)
CPT/HCPCS: 73130; 99212

== ENCOUNTER 2023-08-08 15:03 | Outpatient (AMB) | payer MEDICAID, SELFPAY ==
--- NOTE | 2023-08-08 15:12 | MHC.OFFVIS ---
Vital Signs 08/08/23 15:23 Height 5 ft 3 in Weight 231 lb BMI 40.9 Intake Visit Reasons: FC- RT thumb avulsion fx Intake Note: Carmelita a 33 year old right hand dominant female who presents today for an evaluation of right thumb fracture. Patient reports she woke up having pain in her thumb, the next morning she noticed a lump and continued to have pain. She presented to [facility] on 07/31/23 where xrays were taken and placed in a finger splint. She does not recall any injury, however she may have hit her finger on her head board while sleeping. She continues to have pain located at her IP. Denies numbness or tingling. Allergies No Known Allergies [No Known Allergies*] Allergy (Verified 08/08/23 15:30) HPI HPI FC- RT thumb avulsion fx: Details: Patient is a 33-year-old female who presents to clinic today for emergency room follow-up following diagnosis of right thumb avulsion fracture on 07/31/2023. The patient reports that, on 07/30/2023, she awoke to moderate amounts of pain and swelling in her right thumb, but she did not get evaluated until 07/31/2023, when she woke up and the thumb was significantly more edematous, erythematous, and painful. X-rays obtained in the ED revealed a possible avulsion fracture of the right distal phalanx of the thumb, and the patient was placed in a R thumb splint. Today, the patient reports that swelling and pain have decreased, but that she still feels that her flexion is restricted due to pain, and she experiences point tenderness to palpation over the dorsal, radial aspect of the distal phalanx base of the R thumb, just distal to the IP joint. [facility] Medical History Hypertension Arthritis GERD (gastroesophageal reflux disease) Renal calculi COVID-19 vaccine series completed Encounter for Essure implantation History of hypertension Hx of hidradenitis suppurativa Surgical History Hx of wisdom tooth extraction History of sleeve gastrectomy Hx of cystoscopy History of ankle fusion History of repair of ACL Family History Mother Breast cancer Father Deaf Knee problem Sister No problems noted. Sister Allergies Brother Muscular dystrophies Brother No problems noted. Social History (Updated 08/08/23 @ 15:21 by LEAH Flores) Are you a primary senior care manager to a significant other at home: No Do you presently have visiting nurse or other home services: No Alcohol intake: former Patient Tobacco Use Status: Current everyday Tobacco user Tobacco use type: Cigarette Cigarettes Per Day: 8 service: No Current occupational status: unemployed Current occupation: right hand dominant Review of Systems Const All systems reviewed & are unremarkable except as noted in HPI and below Physical Exam Vital Signs: BMI result Body Mass Index 40.9 Office Procedures Fracture Care Details: Avulsion fx right thumb Fracture Billing Code: Fracture Billing Code Results Reviewed Results Reviewed: X-rays obtained in the office today and independently reviewed by me, Cole Magaña PA-C, demonstrate area of lucency in the radial aspect of the right thumb, just distal and lateral to the IP joint, possibly representing avulsion fracture. Assessment & Plan Assessment & Plan (1) Avulsion fracture of right thumb: Code(s): S62.501A - Fracture of unspecified phalanx of right thumb, initial encounter for closed fracture Category: Medical Qualifiers: Encounter type: initial encounter Fracture type: closed Qualified Code(s): S62.501A - Fracture of unspecified phalanx of right thumb, initial encounter for closed fracture Plan 1. Right thumb avulsion fracture Date of injury 07/30/2023 At this time, after consultation with Dr. Higgins, patient given a thumb splint to wear during daytime activities. Patient is encouraged to continue with range of motion of fingers and wrist to prevent stiffness Patient will follow-up in clinic with me in 4 weeks for repeat x-rays, [id number] check, and healing evaluation, sooner with any acute concerns. Patient told that, if they are feeling much better and have no concerns, they can cancel next appointment. Orders: Orders XR hand RT min 3V Today M79.641 - Pain in right hand Coding Level of Care Code New Pt Level 3 (09451) Diagnoses Closed avulsion fracture of phalanx of right thumb, initial encounter S62.501A Encounter type: initial encounter Fracture type: closed CPT Codes Fracture Care - Fracture Billing Code: Fracture Billing Code ([id number])
[2023-08-08 15:23] VITALS: BMI 40.9
== END 2023-08-08 15:56 | disposition home or self-care (01) ==
DX: S62.524A Nondisplaced fracture of distal phalanx of right thumb, initial encounter for closed fracture (principal)
CPT/HCPCS: 99203

== ENCOUNTER 2024-06-20 20:57 | Emergency (ER) | payer MEDICAID, SELFPAY ==
[2024-06-20 21:09] VITALS: BP 144/80; PULSE 80; RESP 16; TEMP 36.4; O2SAT 98; BMI 40.7
--- OUTSIDE RECORDS SUMMARY | 2024-06-20 21:51 | XMS_ITS | Clinical Summary ---
Author Organization [employer] [facility] Address [address] [place] [address] Care Team Providers Care Grade Checker Name Role Phone Annamaria Perkins MD Primary Care Provider [phone] Allergies No known active allergies Medications fluticasone (Flonase) 50 MCG/ACT nasal sprayIndication s:Viral URI Use 1 spray each nostril daily. Shake gently. Before first use, prime pump. After use, clean tip and replace cap. 16 g 2 09/06/2022 Active albuterol 108 (90 Base) MCG/ACT inhalerIndicati ons:Bronchitis Inhale 2 puffs every 6 (six) hours if needed for wheezing for up to 10 days. 18 g 09/06/2022 Active Active Problems Problem Noted Date Diagnosed Date Acute pain of left knee 06/08/2022 Assessment & Plan (06/08/2022 11:51 AM EDT): Given that she has underlying OA changes with this recent trauma I will refer to PT. recommended to continue RICE therapy Continue Ibuprofen PRN Use knee brace especially when standing for more than 2 hours recommended rest every 2-4 hours and FU with PCP PRN Vitamin D deficiency 06/06/2022 Essential hypertension 06/06/2022 Hidradenitis suppurativa 06/07/2018 Encounters Date Type Department Care Team Description 04/19/2024 Population Health Risk Score [facility] ([facility]) Department [address] [id number] Provider, Population Health Generic from Last 3 Months Social History Tobacco Use Types Packs/Day Years Used Date Smoking Tobacco: Never Assessed Comments Unknown Sex and Gender Information Value Date Recorded Sex Assigned at Female 12/06/2021 10:35 AM EDT Legal Sex Female 10:35 AM EDT Gender Identity Female 12/06/2021 10:35 AM EDT Sexual Orientation Straight 12/06/2021 10 :35 AM EDT Last Filed Vital Signs Vital Sign Reading Time Taken Comments Blood Pressure 146/101 09/06/2022 5:04 PM EDT Pulse 87 09/06/2022 5:04 PM EDT Temperature 37.2 ??C (98.9 ??F) 09/06/2022 5:04 PM ED T Respiratory Rate 20 09/06/2022 5:04 PM EDT Oxygen Saturation 97% 09/06/2022 5:04 PM EDT Inhaled Oxygen Concentration - - Weight 102 kg (223 lb 12.8 oz) 09/06/2022 5:04 P M EDT Height 162.6 cm (5' 4 ) 07/19/2021 12:06 AM EDT Body Mass Index 38.42 07/19/2021 12:06 AM EDT Plan of Treatment Health Maintenance Due Date Last Done Comments Depression Screening 1989 HIV Screening 1989 SDOH Screening 1989 Alcohol/Substance Use Screening 2001 Tobacco Screening 2001 Family Planning (PISQ) 2004 Hepatitis C Screening 07/06/2007 DTaP/Tdap/Td Vaccines (1 - Tdap) 2008 Hepatitis B Vaccines (1 of 3 - 19+ 3-dose series) 2008 Pap Smear 2010 Cervical Cancer Screening 07/06/2019 HPV/Cotest 07/06/2019 COVID-19 Vaccine (3 - 2023-2 5 season) 2023 06/02/2020, 05/11/2020 Influenza Vaccine (#1) 2023 Lipid Panel 08/21/2025 08/21/2020 Zoster Vaccines (1 of 2) 07/06/2039 RSV Patients and Patients Aged 60 years or older (1 - 1-dose 75+ series) 2064 HIB Vaccines Aged Out No longer eligi ble based on patient's age to complete this topic HPV Vaccines Aged Out No longer eligi ble based on patient's age to complete this topic Hepatitis A Vaccines Aged Out No long er eligible based on patient's age to complete this topic IPV Vaccines Aged Out No longer eligi ble based on patient's age to complete this topic Meningococcal B Vaccine Aged Out No l onger eligible based on patient's age to complete this topic Meningococcal Vaccine Aged Out No cuong carlos eligible based on patient's age to complete this topic Pneumococcal Vaccine: Pediatrics (0 to 5 Years) and At-Risk Patients (6 to 49) Years) Aged Out No longer eligible b ased on patient's age to complete this topic RSV under 20 months Aged Out No longe r eligible based on patient's age to complete this topic Rotavirus Vaccines Aged Out No longer eligible based on patient's age to complete this topic Procedures Procedure Name Priority Date/Time Associated Diagnosis Comments LIPID PANEL, STANDARD Routine 08/21/2020 1:43 PM EDT from Last 3 Months or Most Recently Relevant to Health Maintenance Results * (ABNORMAL) LIPID PANEL, STANDARD (08/21/2020 1:43 PM EDT) Chol/HDLC Ratio 4.0 <5.0 (calc) [facility] Cholesterol, Total 149 <200 mg/dL [facility] HDL Cholesterol 37(L) > OR = 50 mg/dL [facility] LDL Cholesterol 82 mg/dL (calc) [facility] Comment: Reference range: <100 ?? Desirable range <100 mg/dL for primary prevention; ?? <70 mg/dL for patients with CHD or diabetic patients ?? with > or = 2 CHD risk factors. ?? LDL-C is now calculated using the Deidre ?? calculation, which is a validated novel method providing ?? better accuracy than the Friedewald equation in the ?? estimation of LDL-C. ?? Boaz BAGLEY et al. TANO. 2013;310(19): 7389-7937 ?? (http://education.Modti/faq/IXP880) Non-HDL Cholesterol 112 <130 mg/dL (calc) [facility] Comment: For patients with diabetes plus 1 major ASCVD risk ?? factor, treating to a non-HDL-C goal of <100 mg/dL ?? (LDL-C of <70 mg/dL) is considered a therapeutic ?? option. Triglycerides 205(H) <150 mg/dL [facility] Comment: ?? If a non-fasting specimen was collected, consider repeat triglyceride testing on a fasting specimen if clinically indicated. ?? Rubin et al. J. of Clin. Lipidol. 2015;9:129-169. ?? 08/21/2020 1:43 PM EDT Jenny Lopez MD LAB BLOOD ORDERABLES Final R esult [facility] [address] from Last 3 Months or Most Recently Relevant to Health Maintenance Insurance [address] [place], [place] [address] Care Teams Grade Checker Relationship Specialty Start Date End Date Annamaria Perkins MD [address] [place] [address] PCP - General Family Medicine 01/03/22
--- OUTSIDE RECORDS SUMMARY | 2024-06-20 21:51 | XMS_ITS | Data Portability ---
Author Organization [employer] [facility] [id number] Address [address] [place] [address] Assessment No assessment recorded. Plan of Treatment Reminders Order Date Submit Date Provider Last Modified By Organization Details Last Modified Time Details Appointments None recorded. Lab None recorded. Referral None recorded. Procedures None recorded. Surgeries None recorded. Imaging None recorded. Medication Orders albuterol sulfate HFA 90 mcg/actuati on aerosol inhaler 2022 023 [facility][id number], [address] [place], [address], 3 14:03:28 prednisone 20 mg tablet 2022 023 [facility][id number], [address] [place], [address], 3 14:03:28 Patient TargetsNo targets recorded. Patient InstructionsNo instructions recorded. Reason for Referral None Reported. Problems No Known Problems Procedures Surgical History Date Name Laterality Status Provider Name and Address Organization Details Recorded Time laparoscopic sleeve gastrectomy completed [employer] PA - [facility] 04/07/2022 12:28:15 procedure on knee completed [facility] PA - [facility] 04/07/2022 12:28:37 procedure on ankle completed [employer] PA - [facility] 04/07/2022 12:29:52 operation on urinary system completed [employer] PA - [facility] 04/07/2022 12:30:44 Imaging Results None recorded. Procedure Notes None recorded. Medical Equipment None Reported. Allergies No known drug allergies Medications Name Sig Start Date Stop Date Status Note LastModified by Organization Details LastModified Time prednisone 20 mg tablet Take 3 tablets every day by oral route for 7 days. 2022 active Not Available Not Available Not Avai lable albuterol sulfate HFA 90 mcg/actuatio n aerosol inhaler Inhale 2 puffs 3 times a day by inhalation route for 7 days. 2022 active Not Available Not Available Not Avai lable fluticasone propionate 50 mcg/actuatio n nasal spray,suspen bhavin SPRAY 1 SPRAY(S) (NASAL) 2 TIMES PER DAY IN EACH NOSTRIL FOR ALLERGY SYMPTOMS active Not Available Not Available No t Available Vitals Date Recorded Body height Body mass index (BMI) Body weight Pain severity - 0-10 verbal numeric rating [Score] - Reported Respiratory rate Oxygen saturation Oxygen saturation in Arterial blood by Pulse oximetry Heart rate Body temperature Systolic blood pressure Diastolic blood pressure Provider Name and Address Organization Details Last Updated DateTime 160.02 cm 38.1 kg/m2 55238.3 6 g 3 19 /min 100 % 100 % 77 /min 98.3 [degF] 138 mm[Hg] 90 mm[Hg] VIKTOR VIVAR [facility] 12:31:52 Social History Question Answer Notes LastModified by [employer] Details LastModified Time Tobacco Smoking Status Current Every Day Smoker [facility] [employer] 04/07/2022 12:31:06 How Much Tobacco Do You Smoke? 0.5 PPD [email or web address] Information not available 04/07/2022 Have You Recently Traveled Abroad? No [email or web address] Information not available 04/07/2022 Sex: Unknown Functional Status Question Answer Note LastModified by [employer] Details LastModified Time Do you use any illicit or recreational drugs? No [email or web address] Information not available 04/07/2022 Do you or have you ever used any other forms of tobacco or nicotine? No [email or web address] Information not available 04/07/2022 What is your level of alcohol consumption? None Information not available 04/07/2022 Mental Status None recorded. Family History Relationship Description Onset Age of this Age Resolved Age Notes LastModified by Organization Details LastModified Time Father No current problems or disability [email or web address] Not available 04/07 12:30:47 Mother No current problems or disability Not available 04/07 12:30:47 Medical History No medical history recorded. Gynecological HistoryNo gynecological history recorded. Obstetrics History GPAL:G 0 P 0 0 0 0 Past Encounters Encounter ID Performer Location Encounter Start Date Encounter Closed Date Diagnosis/Indication Diagnosis SNOMED-CT Code Diagnosis ICD10 Code Diagnosis Note [id number] [address] [place] [address] 09/13/2015 11:28:35 09/13/2015 11:51:12 [id number] [address] [place] [address] 02/19/2017 18:38:39 02/19/2017 19:29:16 [id number] [address] [place] [address] 10/23/2020 08:52:32 10/23/2020 11:00:35 [id number] [address] [place] [address] 06/01/2016 13:24:49 06/01/2016 14:13:11 [id number] [address] [place] [address] 11/08/2015 10:50:59 11/08/2015 12:08:46 [id number] [address] [place] [address] 03/12/2015 11:15:41 03/12/2015 11:34:46 [id number] [address] [place] [address] 10/25/2021 14:10:14 10/25/2021 17:06:40 [id number] [address] [place] [address] 01/23/2015 13:01:41 01/23/2015 14:06:02 [id number] LIVIA JONES MD [address] [place] [address] 04/07/2022 09:06:36 04/07/2022 14:06:19 Reactive airway disease [id number] 06 J45.909 Call your PCP to schedule a follow up appointmen t within the next 2 weeks. Health Concerns Section Related Observation LastModified by Organization Detai ls LastModified Time None Recorded Concern Status LastModified by Organization Details LastModified Time None Recorded Advance Directives Directive None Recorded Payers Insurance Date Sequence Insurance Name Policy Number Policy Brennan Covered Member ID Brennan Member ID Guarantor Name 04/07/2022 1 [place] [facility] Carmelita Lawler [id number] Carmelita Lawler Notes Date Note Type Note Provider Name and Address Organization Details Recorded Time 04/07/2022 text/html CoughReported bypatient.Quality:d ry and wet Severity:mild Duration:intermitte nt; current episode started (03/31/2022) Timing:sudden Associated Symptoms:no fever; no chills; no chest pain;wheezing;hurts to breath LIVIA JONES MD [address] [place] [address] [place], [address], [place] - [facility] 04/07/2022 14:04:16 OBGyn Episode No OBEpisode recorded.
--- OUTSIDE RECORDS SUMMARY | 2024-06-20 21:51 | XMS_ITS | Encounter Summary ---
Author Organization [employer] Address [address] [place] [address] [address] [place] [address] Care Team Providers Care Scale Adjuster Name Role Phone Jenny Lopez MD Primary Care Provider Unava Annamaria Akers MD Primary Care Provider [phone] Encounter Details Date Type Department Care Team (Latest Contact Info) Description 11/12/2020 Abstract [facility] CONVERSIONS Dental, Provider, DDS Social History Tobacco Use Types Packs/Day Years Used Date Smoking Tobacco: Never Assessed Comments Unknown Sex and Gender Information Value Date Recorded Sex Assigned at Female 12/06/2021 10:35 AM EDT Legal Sex Female 10:35 AM EDT Gender Identity Female 12/06/2021 10:35 AM EDT Sexual Orientation Straight 12/06/2021 10 :35 AM EDT documented as of this encounter Plan of Treatment Not on file documented as of this encounter Visit Diagnoses Not on filedocumented in this encounter Care Teams Scale Adjuster Relationship Specialty Start Date End Date Jenny Lopez MD PCP - General Family Medicine 12/10/18 01/02/22 Annamaria Perkins MD [address] [place] [address] PCP - General Family Medicine 01/03/22 documented as of this encounter
--- NOTE | 2024-06-21 00:09 | ED.EYEPROB ---
HPI - Eye Problem General Chief complaint: Eye Problems Stated complaint: left swelling redness Time Seen by Provider: 06/20/24 23:41 Source: patient, family and RN notes reviewed Mode of arrival: ambulatory Limitations: no limitations History of Present Illness ED Provider: Lyubov Hope PA-C HPI Narrative: Patient reports to the emergency department tonight for evaluation of chronic left eye discharge. She states it has been going on since she was a teenager. This is confirmed by her sister who she is accompanied by. In the last month this has been bothering her more. She sought medical attention at urgent care twice. First she took amoxicillin for strep throat and her eye at the same time but it made no difference. They then saw urgent care 2 days ago and was placed on doxycycline for this I infection but that too has made no difference. Patient does have ointment at home for which she has used in the past but has not used it recently. She has not been able to see an blind eyeletter for this but does report that she chronically pushes out whitish or yellow discharge from both her upper and lower tear duct of her left eye. Sometimes it is caked on her eyelids. She wanted to leave it here today for it to see. She denies any visual changes or eye pressure. Does not itch or burn in any way. Reports eyes are usually crusted shut in the morning. Her right eye is unaffected and never has been affected. She is denying any fevers or chills or nasal congestion no facial swelling. Denies any eye trauma does not wear corrective lenses. Related Data Home Medications ?Medication ?Instructions ?Recorded ?Confirmed celebrate Calderon +D PO BID 04/21/21 04/21/21 celebrate MVI PO DAILY 04/21/21 04/21/21 Previous Rx's ?Medication ?Instructions ?Recorded prednisone 20 mg tablet 20 mg PO DAILY #4 tabs 10/05/22 tamsulosin 0.4 mg capsule (Flomax) 0.4 mg PO BEDTIME #4 caps 10/05/22 Allergies Allergy/AdvReac Type Severity Reaction Status Date / Time No Known Allergies Allergy Verified 06/20/24 21:12 [No Known Allergies*] Review of Systems Review of Systems: Yes all other systems are reviewed and are negative PMFSH Past Medical History Attestation statement: The following information was validated with the patient. Source: old records reviewed and nursing notes reviewed Medical History Hypertension Arthritis GERD (gastroesophageal reflux disease) Renal calculi COVID-19 vaccine series completed Encounter for Essure implantation History of hypertension Hx of hidradenitis suppurativa Surgical History Hx of wisdom tooth extraction History of sleeve gastrectomy Hx of cystoscopy History of ankle fusion History of repair of ACL Family History Family History Mother Breast cancer Father Deaf Knee problem Sister No problems noted. Sister Allergies Brother Muscular dystrophies Brother No problems noted. Social History Social History Are you a primary direct care professional to a significant other at home: No Do you presently have visiting nurse or other home services: No Alcohol intake: former Patient Tobacco Use Status: Current everyday Tobacco user Tobacco use type: Cigarette Cigarettes Per Day: 8 Advance Directives: No Advance Directives Information Provided: No Do you have a plan to hurt others: No Plan service: No Current occupational status: unemployed Current occupation: right hand dominant Physical Exam Vital Signs: Vital Signs: Last Vital Signs Temp 97.6 F 06/21/24 00:22 Pulse 80 06/21/24 00:22 Resp 16 06/21/24 00:22 BP 144/80 H 06/21/24 00:22 Pulse Ox 98 06/21/24 00:22 O2 Del Method Room Air 06/21/24 00:22 BMI result Body Mass Index 40.7 Obese, well appearing, left eye with scant yellow wet d/c on upepr and lower medial eye lids, tear ducts appear open without d/c, erythema or inflammation, no adenitis gland swelling, no periorbital erythema or edema, PERRLA, EOMI and nonpainful. Sclera/ COnj clear, no photophobia noted, right eye unaffected HEENT: Head: Yes normal to inspection General nose exam: Normal external nose present Mouth: Normal oral and palatal mucosa present and lip normal Neck: Neck: Yes normal visual inspection, Yes full ROM and Yes no lymphadenopathy Resp: Effort & Inspection: normal respiratory effort and able to speak in complete sentences Skin: Wounds: no wounds Medical Decision Making Medical Decision Making MDM Narrative: Well-appearing 33 y/o F with PMH significant for chronic optorrhea of the left eye. Here for evaluation of chronic sxs. No new changes. Failed two recent abx to improve sxs. Had cx in past of d/c being negative. She has yet to see blind eyeletter. There is no evidence today of acute dacrocysitis, adenocysitis, periobital/orbitall cellulitis, scleritis, uveitis, conjunctivitis or skin abscess. History suggestive of chronic bephlaritis but no crusting concerning for parasitic infection. She also has ointment at home and been on two PO abx. She has eye doctor she has tried calling and will again Monday. She sought medical attention to see if she should be seen emergently. No concern for surigical condition at this time. NO change to current outpatient plan. Gave eye doctor information. She was given ED precautions. She was d/c to home stable. Differential Diagnosis Differential Diagnoses: The differential diagnosis associated with the presentation includes See mDM Admission/Observation Consideration of admission/observation: Escalation of care including admission/observation considered had her work up been concerning for surgical/ septic eye Independent Historian Clinical information obtained from an independent historian. History obtained from or confirmed by: Other (sister, confirms chronicity of symptoms) Tests considered The following testing was considered but not selected: CT scan of orbits, labs: no concerns for deep infection today to warrant such a work up Prescription Management I considered prescription management with: Pain Medication, Antiviral and Antibiotic no acute infectious etiology noted, no herpetic lesions, no pain but NVI Chronic Conditions Patient?s care impacted by: Other (obesity, blepharitis) Critical Care Time Critical Care Time Critical Care Time: No Discharge Plan Discharge Clinical Impression: Blepharitis, Chronic inflammation of left lacrimal passage Patient Disposition: Home, Self-Care Instructions: Blepharitis (ED), DCR (Dacryocystorhinostomy) (DC) Additional Instructions: You were seen in the emergency department today for chronic inflammation and discharged from your left eye. Your without any evidence for acute infection of your tear duct today. Your condition appears inflammatory an acute condition of blepharitis. You have stated that you already have erythromycin ointment at home please use this on both her upper lips. Use baby shampoo to wash it he has warm compresses to wipe away the discharge. As this is a chronic condition it is important that you follow up with an blind eyeletter. If for any reason you develop any redness of swelling of your periorbital region this is concerning he should seek medical attention immediately. For any new current concerning symptoms welcome back to the ED Prescriptions: No Action tamsulosin [Flomax] 0.4 mg capsule 0.4 mg PO BEDTIME Qty: 4 0RF prednisone 20 mg tablet 20 mg PO DAILY Qty: 4 0RF celebrate MVI PO DAILY celebrate Calderon +D PO BID Referrals: Raphael Terrazas [Physician] - 1 day Interventions: ED Discharge Assessment Last Done: 06/21/24 00:22 Discharge Date/Time: 06/21/24 00:22 Print Language: Mohawk
[2024-06-21 00:22] VITALS: BP 144/80; PULSE 80; RESP 16; TEMP 36.4; O2SAT 98
== END 2024-06-21 00:22 | disposition home or self-care (01) ==
PROVIDERS: Emergency Provider Internal Medicine
DX: H01.006 Unspecified blepharitis left eye, unspecified eyelid (principal); H57.89 Other specified disorders of eye and adnexa
CPT/HCPCS: 99282

== ENCOUNTER 2024-10-04 22:34 | Emergency (ER) | payer MEDICAID, SELFPAY ==
[2024-10-04 22:37] VITALS: BP 137/85; PULSE 88; RESP 20; TEMP 36.1; O2SAT 98; BMI 41.6
--- OUTSIDE RECORDS SUMMARY | 2024-10-04 22:50 | XMS_ITS | Clinical Summary ---
Author Organization [employer] Address [address] [place] [address] [address] [place] [address] Care Team Providers Care Electronic Integrated Systems Mechanic Name Role Phone Annamaria Perkins MD Primary Care Provider [phone] Allergies No known active allergies Medications fluticasone [...] 06/06/2022 Essential hypertension 06/06/2022 Hidradenitis suppurativa 06/07/2018 Social History Tobacco Use Types Packs/Day Years [...] 87 09/06/2022 5:04 PM EDT Temperature 37.2 C (98.9 F) 09/06/2022 5:04 PM EDT Respiratory Rate 20 09/06/2022 5:04 PM EDT [...] 1989 HIV Screening 1989 SDOH Screening 1989 Disability Screening 1989 Alcohol/Substance Use Screening 2001 Tobacco Screening 2001 Family Planning (PISQ) 2004 HPV Vaccines (1 - 3-dose series) 2004 Hepatitis C Screening 07/06/2007 DTaP/Tdap/Td Vaccines (1 - Tdap) 2008 Hepatitis B Vaccines (1 of 3 - 19+ 3-dose series) 2008 Pap Smear 2010 Cervical Cancer Screening 07/06/2019 HPV/Cotest 07/06/2019 COVID-19 Vaccine (3 - 2023-2 5 season) 2023 06/02/2020, 05/11/2020 Influenza Vaccine (#1) 2024 Lipid Panel 08/21/2025 08/21/2020 Zoster Vaccines (1 [...] Years) and At-Risk Patients (6 to 49) Years Aged Out No longer eligible b ased [...] [facility] Comment: Reference range: <100 Desirable range <100 mg/dL for primary prevention; <70 mg/dL for patients with CHD or diabetic patients with > or = 2 CHD risk factors. LDL-C is now calculated using the Boaz-Garcia calculation, which is a validated novel method providing better accuracy than the Friedewald equation in the estimation of LDL-C. Boaz SS et al. TANO. 2013;310(19): 2584-6372 (http://education.kingsky.Eat In Chef/faq/TWI924) Non-HDL Cholesterol 112 <130 mg/dL (calc) [facility] Comment: For patients with diabetes plus 1 major ASCVD risk factor, treating to a non-HDL-C goal of <100 mg/dL (LDL-C of <70 mg/dL) is considered a therapeutic option. Triglycerides 205(H) <150 mg/dL [facility] Comment: If a non-fasting specimen was collected, consider repeat triglyceride testing on a fasting specimen if clinically indicated. Rubin et al. J. of Clin. Lipidol. 2015;9:129-169. 08/21/2020 1:43 PM EDT us Jenny Lopez MD LAB BLOOD ORDERABLES Final R esult [facility] [address] from Last 3 Months or Most Recently Relevant to Health Maintenance [place] [address] C3 Care Teams Electronic Integrated Systems Mechanic Relationship Specialty Start Date End Date Annamaria Perkins MD [address] [place] [id number] PCP - General Family Medicine 01/03/22
--- OUTSIDE RECORDS SUMMARY | 2024-10-04 22:50 | XMS_ITS | Encounter Summary ---
Author Organization [employer] Address [address] [place] [address] [address] [place] [address] Care Team Providers Care Barrel Lathe Operator Outside Name Role Phone Jenny Lopez MD Primary Care Provider Unava Annamaria Akers MD Primary Care Provider [phone] Encounter Details Date Type Department Care Team [...] on filedocumented in this encounter Care Teams Barrel Lathe Operator Outside Relationship Specialty Start Date End Date Jenny Lopez MD PCP - General Family Medicine 12/10/18 01/02/22 Annamaria Perkins MD [address] [place] [address] PCP - General Family Medicine 01/03/22 documented as of this encounter
--- NOTE | 2024-10-04 23:42 | ED.GENADULT ---
HPI - General Adult General Chief complaint: Ear Problems Stated complaint: ?L ear infection Time Seen by Provider: 10/04/24 22:47 Source: patient Limitations: no limitations History of Present Illness ED Provider: Suyapa Harden PA-C HPI narrative: 34-year-old female with a history of morbid obesity, hypertension, GERD who presents with left ear pain x3 days. Patient states she was seen at urgent care and treated for otitis externa. She states her symptoms have worsened, and that the drops made her ear canal ?itch?. Subjective fevers at home. Denies surrounding head pain, concurrent cough or cold symptoms, no history of seasonal allergies. Related Data Home Medications ?Medication ?Instructions ?Recorded ?Confirmed celebrate Calderon +D PO BID 04/21/21 04/21/21 celebrate MVI PO DAILY 04/21/21 04/21/21 Previous Rx's ?Medication ?Instructions ?Recorded prednisone 20 mg tablet 20 mg PO DAILY #4 tabs 10/05/22 tamsulosin 0.4 mg capsule (Flomax) 0.4 mg PO BEDTIME #4 caps 10/05/22 amoxicillin 500 mg capsule 500 mg PO Q12H #19 caps 10/04/24 fluconazole 150 mg tablet 150 mg PO DAILY 1 dose #1 tab 10/04/24 Allergies Allergy/AdvReac Type Severity Reaction Status Date / Time No Known Allergies (No Known Allergy Verified 10/04/24 22:39 Allergies*) Review of Systems Review of Systems: Yes all other systems are reviewed and are negative Constitutional: Constitutional: Denies fatigue, Reports fever(s) and Denies headache(s) ENT: Reports otalgia, Denies headache(s), Denies nasal congestion, Denies nasal discharge and Denies sore throat Respiratory: Respiratory: Denies cough Neurologic: Denies headache(s) Endocrine: Endocrine: Denies fatigue PMFSH Past Medical History Attestation statement: The following information was validated with the patient. Medical History Hypertension Arthritis GERD (gastroesophageal reflux disease) Renal calculi COVID-19 vaccine series completed Encounter for Essure implantation History of hypertension Hx of hidradenitis suppurativa Surgical History Hx of wisdom tooth extraction History of sleeve gastrectomy Hx of cystoscopy History of ankle fusion History of repair of ACL Family History Family History Mother Breast cancer Father Deaf Knee problem Sister No problems noted. Sister Allergies Brother Muscular dystrophies Brother No problems noted. Social History Social History Are you a primary medicare coordinator to a significant other at home: No Do you presently have visiting nurse or other home services: No Alcohol intake: former Patient Tobacco Use Status: Current everyday Tobacco user Tobacco use type: Cigarette Cigarettes Per Day: 8 Smoked in Last 30 Days: Yes Use of substances other than those prescribed or required for medical reasons: No Advance Directives: No Advance Directives Information Provided: No Do you have a plan to hurt others: No Plan service: No Current occupational status: unemployed Current occupation: right hand dominant Physical Exam ED Vital Signs: Vital Signs - 24 hr 10/04/24 22:37 Temperature 97.0 F Pulse Rate 88 Respiratory Rate 20 Blood Pressure 137/85 Pulse Oximetry 98 Oxygen Delivery Method Room Air BMI result Body Mass Index 41.6 Const Other: Alert well-appearing Orientation/consciousness: patient oriented x3 HENMT Other: Left TM is dull, outlined with erythema, no erythema or exudate in the external ear canal, the exam was uncomfortable for the patient, no tenderness of the mastoid Resp Effort & Inspection: normal respiratory effort Cardio Other: Normal peripheral perfusion Skin Other: Warm dry no rash Neuro General: patient oriented x3, gait normal, no focal motor deficits and CN's II-XI intact bilaterally Psych Other: Cooperative Medical Decision Making Medical Decision Making MDM Narrative: 34-year-old female with a history of morbid obesity, hypertension, GERD who presents with left ear pain x3 days. Patient states she was seen at urgent care and treated for otitis externa. She states her symptoms have worsened, and that the drops made her ear canal ?itch?. Subjective fevers at home. Denies surrounding head pain, concurrent cough or cold symptoms, no history of seasonal allergies. No chronic issues that are relevant History: Per patient I have considered the following differential diagnoses: Serous otitis, otitis media, otitis externa, mastoiditis Plan: Patient has evidence of otitis media we will treat with the amoxicillin. There was no tenderness over the mastoid when to suggest mastoiditis, and she is hemodynamically stable and objectively afebrile. No indication for imaging. No indication for labs. Differential Diagnosis Differential Diagnoses: The differential diagnosis associated with the presentation includes See MDM Admission/Observation Consideration of admission/observation: Escalation of care including admission/observation considered Not applicable Discharge Plan Discharge Clinical Impression: Acute left otitis media Patient Disposition: Home, Self-Care Instructions: Ear Infection (ED) Additional Instructions: You are being treated for an inner ear infection. See home care instructions. Take the amoxicillin as directed be sure to complete the course of this antibiotic. You may develop a yeast infection, take the Diflucan if you start to develop vaginal itching or white vaginal discharge. Follow up with your primary care provider as needed. Prescriptions: New amoxicillin 500 mg capsule 500 mg PO Q12H Qty: 19 0RF fluconazole 150 mg tablet 150 mg PO DAILY Qty: 1 0RF Rx Instructions: administer on day 1 of therapy No Action tamsulosin [Flomax] 0.4 mg capsule 0.4 mg PO BEDTIME Qty: 4 0RF prednisone 20 mg tablet 20 mg PO DAILY Qty: 4 0RF celebrate MVI PO DAILY celebrate Calderon +D PO BID Print Language: Indonesian
[2024-10-04 23:55] VITALS: BP 130/87; PULSE 75; RESP 16; TEMP 36.6; O2SAT 96
== END 2024-10-04 23:58 | disposition home or self-care (01) ==
PROVIDERS: Emergency Provider Emergency Medicine
DX: H66.92 Otitis media, unspecified, left ear (principal); H92.02 Otalgia, left ear; R50.9 Fever, unspecified
CPT/HCPCS: 99283